=== PATIENT | male | born 1955 | race Caucasian/White ===

== ENCOUNTER 2020-05-22 08:51 | Emergency (ER) | payer OTHER, SELFPAY ==
[2020-05-22] VITALS (14 sets, daily range): BP systolic 141–174; BP diastolic 89–94; PULSE 66–81; RESP 9–19; TEMP 36.3; O2SAT 98–100
--- NOTE | 2020-05-22 09:07 | ECG_ITS ---
Measurements Intervals [place] Rate: 80 P: 46 ND: 143 QRS: 50 QRSD: 118 T: 29 QT: 388 QTc: 450 Interpretive Statements SINUS RHYTHM INCOMPLETE RIGHT BUNDLE BRANCH BLOCK BASELINE WANDER- I, III BORDERLINE ECG Electronically Signed On 05-22-2020 11:44:25 CDT by Quincy Herron D.O.
--- NOTE | 2020-05-22 09:07 | PC.NURSE ---
No order for orthos, so values are as follows: Laying - BP170/90 HR75 Sitting - BP167/89 HR74 Standing (sitting off side of bed, pt couldn't/wouldn't stand) - BP N/A HR76
[2020-05-22 09:15] LABS: Basophils Absolute Auto 0.1 K/mm3 (0.0-0.1); Basophils Percent Auto 0.4 % (0.2-1.2); Eosinophils Absolute Auto 0.2 K/mm3 (0-0.3); Eosinophils Percent Auto 1.8 % (0-4.4); Hemoglobin 16.2 g/dL (14.0-18.0); Immature Granulocyte Absolute 0.05 K/mm3 (0.00-0.031); Immature Granulocyte Percent A 0.4 % (0-0.5); Lymphocytes Absolute Auto 3.15 K/mm3 (0.9-3.2); Lymphocytes Percent Auto 26.7 % (18.3-44.2); Mean Corpuscular HGB Conc 33.8 g/dl (32-36); Mean Corpuscular Hemoglobin 30.4 pg (26-34); Mean Corpuscular Volume 90.1 fl (80-100); Mean Platelet Volume 11.2 fl (7.4-10.4); Monocytes Absolute Auto 1.9 K/mm3 (0.1-0.6); Monocytes Percent Auto 15.9 % (2.6-8.5); Neutrophils Absolute Auto 6.5 K/mm3 (1.3-6.7); Neutrophils Percent Auto 54.8 % (45.5-73.1); Platelet Count Result 187 k/mm3 (150-375); Red Blood Count 5.33 M/mm3 (4.6-6.20); Red Cell Distribution Width 12.7 % (11.5-14.5); White Blood Count 11.8 K/mm3 (4.5-10.0)
[2020-05-22 09:53] LABS: Anion Gap 12 mmol/L (8-16); Blood Urea Nitrogen 18 mg/dL (9-20); Calcium 9.4 mg/dL (8.4-10.2); Carbon Dioxide 23 mmol/L (22-30); Chloride 103 mmol/L (98-107); Estimated CRCL calculation 83 ml/min; Estimated Glomerular Filt Rate > 60; Glucose 116 mg/dL (75-110); Potassium 3.5 mmol/L (3.4-5.0); Sodium 138 mmol/L (137-145)
--- NOTE | 2020-05-22 11:10 | ED.DIZZY ---
HPI - Dizziness General Chief Complaint: Dizziness Stated Complaint: i think I'm having a stroke Time Seen by Provider: 05/22/20 09:08 History of Present Illness HPI Narrative: Patient is a 64-year-old male who presents the ER with dizziness. Patient was pumping gas when he became suddenly dizzy and felt tingly all over. No diaphoresis. No underlying anxiety. Denies chest pain or chest pressure or racing of the heart. Has history of tachybradycardia syndrome with an implanted pacemaker. Has not had symptoms before. Reports she has had upper respiratory congestion for the last few weeks due to allergies. No fevers or chills or sweats. No focal weakness in arm or leg, no slurred speech. Related Data Home Medications Medication Instructions Recorded Confirmed albuterol sulfate 90 mcg/actuation 2 puff INHALATION Q4-6H PRN gm 12/23/19 03/20/20 aerosol inhaler fluticasone propionate 44 2 puff INHALATION BID gm 12/23/19 03/20/20 mcg/actuation HFA aerosol inhaler leflunomide 20 mg tablet 20 mg PO DAILY 12/23/19 03/20/20 Allergies Allergy/AdvReac Type Severity Reaction Status Date / Time No Known Allergies Allergy Verified 05/22/20 09:03 Review of Systems Review of Systems: All systems reviewed & are unremarkable except as noted in HPI and below Constitutional: Constitutional: Denies chills, Denies fever(s) and Denies weakness ENT: Reports dizziness, Reports nasal congestion and Denies sore throat Cardiovascular: Cardiovascular: Denies chest pain and Denies radiating jaw, neck or arm pain Respiratory: Respiratory: Denies cough and Denies dyspnea Neurologic: Reports dizziness, Denies headache(s), Denies focal weakness, Reports numbness and Denies weakness PMFSH Past Medical History Medical History (Updated 05/22/20 @ 11:17 by Panfilo Navarrete MD) Hypercholesterolemia Hypertension Tachycardia-bradycardia syndrome Surgical History Surgical History (Updated 05/22/20 @ 11:12 by Panfilo Navarrete MD) History of pacemaker Social History Social History Smoking status: Never smoker Second hand tobacco smoke exposure: No Alcohol intake: current Drinks per week: 6 Substance use: never Gender identity (if verbalized by the patient): Male Exam Narrative: Exam Narrative: GENERAL: Well-appearing, well-nourished, and in no acute distress. HEAD: Normocephalic, atraumatic. EYES: PERRL and EOMI. ENT: Mucous membranes moist. CHEST: Clear to auscultation. No respiratory distress. HEART: Regular rate and rhythm. Normal peripheral pulses. ABDOMEN: Soft, nontender, nondistended. EXTREMITIES: Normal range of motion. No edema. SKIN: Warm, dry, no rash. NEURO: No focal deficits. No upper or lower extremity drift. Cranial nerves II through XII intact. Clear speech. Alert and oriented x3. Course Course Emergency Course: Patient resting comfortably and symptom-free. May have experienced peripheral vertigo causing sudden onset dizziness and tingling. No focal deficits here. Recommend meclizine for home. Vital Signs Vital signs: Vital Signs Temperature 97.4 F L 05/22/20 08:55 Pulse Rate 81 05/22/20 08:55 Respiratory Rate 16 05/22/20 08:55 Blood Pressure 174/90 H 05/22/20 08:55 Pulse Oximetry 100 05/22/20 08:55 Temperature 97.4 F L 05/22/20 08:55 Pulse Rate 71 05/22/20 09:44 Respiratory Rate 12 05/22/20 09:44 Blood Pressure 154/90 H 05/22/20 09:44 Pulse Oximetry 98 05/22/20 09:44 MDM - Dizziness Lab Data Result diagrams: 05/22/20 09:10 05/22/20 09:27 Labs: Lab Results 05/22/20 05/22/20 Range/Units 09:10 09:27 WBC 11.8 H (4.5-10.0) K/mm3 RBC 5.33 (4.6-6.20) M/mm3 Hgb 16.2 (14.0-18.0) g/dL Hct 48.0 (42.0-52.0) % MCV 90.1 (80-100) fl MCH 30.4 (26-34) pg MCHC 33.8 (32-36) g/dl RDW 12.7 (11.5-14.5) % Plt Count 187 (150-375)
== END 2020-05-22 11:44 | disposition home or self-care (01) ==
PROVIDERS: Emergency Provider Emergency Medicine; PCP Internal Medicine
DX: R42 Dizziness and giddiness (principal); E78.00 Pure hypercholesterolemia, unspecified; I10 Essential (primary) hypertension; Z95.0 Presence of cardiac pacemaker; I49.5 Sick sinus syndrome; I45.10 Unspecified right bundle-branch block
CPT/HCPCS: 36415; 80048; 85025; 93005; 99284

== ENCOUNTER 2020-10-05 15:25 | Outpatient (CLI) | payer OTHER, SELFPAY ==
--- NOTE | ~2020-10-05 | CT_ITS ---
EXAMINATION: CT lumbar spine wo con DATE: 10/05/2020 15:54 INDICATION: Low back pain. TECHNIQUE: Computed tomography (CT) of the lumbar spine was performed without intravenous contrast. A utomated exposure control and iterative reconstruction technique were employed. The dose-length produ ct was 640.79 mGy-cm. COMPARISON: CT lumbar spine 01/20/2019 FINDINGS: There is 6 degrees dextrocurvature of lumbar spine. S1 is a transitional segment. Vertebral body heights are normal. There is mildly decreased disc height at L1-L2 and L2-L3, moderately decrea sed disc height at L3-L4, and severely decreased disc height at L4-L5 and L5-S1. The following disc l evels are specifically discussed: L1-L2: The disc is bulging. There is mild bilateral facet joint osteoarthritis. There is mild right n eural foraminal stenosis. There is mild central canal stenosis. L2-L3: The disc is bulging. There is mild bilateral facet joint osteoarthritis. There is mild bilater al neural foraminal stenosis. There is mild central canal stenosis. L3-L4: The disc is bulging. There is mild right and moderate left facet joint osteoarthritis. There i s mild right and moderate left neural foraminal stenosis. There is mild central canal stenosis. L4-L5: The disc is bulging. There is moderate bilateral facet joint osteoarthritis. There is mild paz ateral neural foraminal stenosis. There is mild central canal stenosis. L5-S1: The disc is bulging. There is moderate bilateral facet joint osteoarthritis. There is moderate bilateral neural foraminal stenosis. There is mild central canal stenosis. IMPRESSION: 1. Severe lumbar spondylosis, stable from 01/20/2019. Reviewed, dictated and finalized at location A. [employer]
== END 2020-10-05 15:26 | disposition home or self-care (01) ==
PROVIDERS: PCP Physician Assistant; Visit Provider Physician Assistant
DX: M47.817 Spondylosis without myelopathy or radiculopathy, lumbosacral region (principal); M48.07 Spinal stenosis, lumbosacral region
CPT/HCPCS: 72131

== ENCOUNTER 2021-05-13 09:20 | Emergency (ER) | payer MEDICARE, OTHER, SELFPAY ==
[2021-05-13] VITALS (16 sets, daily range): BP systolic 143–192; BP diastolic 86–98; PULSE 69–77; RESP 12–18; TEMP 36.8; O2SAT 94–100
--- NOTE | ~2021-05-13 | CT_ITS ---
EXAMINATION: CT brain wo con EXAM DATE: 05/13/2021 10:11 INDICATION: Dizziness, bilateral lower extremity tingling. Near syncope. TECHNIQUE: Spiral CT of the head was performed without contrast. Axial, coronal and sagittal images were reviewed. The dose-length product (DLP) for this examination was 605.33 mGy-cm. The exposure w as tailored according to patient size, and iterative reconstruction (ASIR) was used as additional dos e reduction technique. There is no prior study for comparison. FINDINGS: There is no acute intraparenchymal hemorrhage. No evidence of intraparenchymal brain mass lesion. No evidence of acute infarction. There is no mass effect or midline shift. The ventricles are normal in size. There are no extra-axial collections. There are no acute calvarial fractures. T he orbits are unremarkable. Soft tissue is unremarkable. Moderate ethmoid mucoperiosteal thickening . IMPRESSION: 1. No acute intracranial findings. 2. Moderate ethmoid mucoperiosteal thickening. Reviewed, dictated and finalized at location B.
--- NOTE | 2021-05-13 09:28 | ECG_ITS ---
Measurements Intervals [place] Rate: 76 P: 76 VT: 149 QRS: 43 QRSD: 115 T: 34 QT: 399 QTc: 449 Interpretive Statements SINUS RHYTHM INCOMPLETE RIGHT BUNDLE BRANCH BLOCK BASELINE ARTIFACT- I, III BORDERLINE ECG Electronically Signed On 05-13-2021 10:01:15 CDT by Quincy Herron D.O.
[2021-05-13 09:46] LABS: Basophils Percent Auto 0.3 % (0.2-1.2); Eosinophils Absolute Auto 0.3 K/mm3 (0-0.3); Eosinophils Percent Auto 3.2 % (0-4.4); Hematocrit 45.7 % (42.0-52.0); Hemoglobin 15.6 g/dL (14.0-18.0); Immature Granulocyte Absolute 0.03 K/mm3 (0.00-0.031); Immature Granulocyte Percent A 0.3 % (0-0.5); Lymphocytes Absolute Auto 2.33 K/mm3 (0.9-3.2); Lymphocytes Percent Auto 24.3 % (18.3-44.2); Mean Corpuscular HGB Conc 34.1 g/dl (32-36); Mean Corpuscular Hemoglobin 30.6 pg (26-34); Mean Corpuscular Volume 89.8 fl (80-100); Monocytes Absolute Auto 1.2 K/mm3 (0.1-0.6); Monocytes Percent Auto 12.1 % (2.6-8.5); Neutrophils Absolute Auto 5.7 K/mm3 (1.3-6.7); Neutrophils Percent Auto 59.8 % (45.5-73.1); Platelet Count Result 185 k/mm3 (150-375); Red Blood Count 5.09 M/mm3 (4.6-6.20); Red Cell Distribution Width 12.2 % (11.5-14.5); White Blood Count 9.6 K/mm3 (4.5-10.0)
--- NOTE | 2021-05-13 10:01 | ED.DIZZY ---
HPI - Dizziness General Chief Complaint: Dizziness Stated Complaint: DIZZY Time Seen by Provider: 05/13/21 09:46 Source: patient Mode of arrival: ambulatory Limitations: no limitations History of Present Illness HPI Narrative: Patient is a 65-year-old male complaining of dizziness, started today and when he checked his blood pressure it was high. Patient states that his doctor recently changed his blood pressure medication. Patient currently denies being dizzy, states that he was dizzy while at the bank today felt like he was going to pass out but now resolved. Patient states that he has dizziness whenever his blood pressure is high. Patient denies any headache, speech or visual disturbance, focal weakness or numbness, unsteady gait, chest pain, shortness of breath, abdominal pain, nausea, vomiting, diarrhea, fever or chills. Related Data Home Medications Medication Instructions Recorded Confirmed albuterol sulfate 90 mcg/actuation 2 puff INHALATION Q4-6H PRN gm 12/23/19 10/01/20 aerosol inhaler leflunomide 20 mg tablet 20 mg PO DAILY 12/23/19 10/01/20 Allergies Allergy/AdvReac Type Severity Reaction Status Date / Time No Known Allergies Allergy Verified 09/29/20 14:22 Review of Systems Review of Systems: All systems reviewed & are unremarkable except as noted in HPI and below Constitutional: Constitutional: Denies body ache(s), Denies chills, Denies excessive sweating, Denies fatigue, Denies fever(s), Denies headache(s), Denies lethargy, Denies malaise, Denies weakness and Denies weight loss Eyes: Eyes: Denies blurry vision, Denies change in vision and Denies loss of vision ENT: Denies ear discharge, Denies headache(s), Denies lip swelling, Denies epistaxis, Denies nasal congestion, Denies neck pain, Denies throat swelling and Denies tongue swelling Cardiovascular: Cardiovascular: Denies chest pain, Denies chest pain at rest, Denies chest pain with activity, Denies diaphoresis, Denies rapid heart rate, Denies edema, Denies irregular heart rhythm, Denies lightheadedness, Denies palpitations, Denies dyspnea and Denies dyspnea on exertion Respiratory: Respiratory: Denies chest congestion, Denies cough, Denies hemoptysis, Denies dyspnea and Denies dyspnea on exertion Gastrointestinal: Gastrointestinal: Denies abdominal pain, Denies melena, Denies hematochezia, Denies diarrhea, Denies nausea, Denies vomiting and Denies hematemesis Musculoskeletal: Musculoskeletal: Denies abnormal gait, Denies deformity, Denies joint swelling, Denies limited range of motion, Denies neck pain and Denies numbness Neurologic: Denies Abnormal speech present, Denies abnormal gait, Denies confusion, Denies headache(s), Denies focal weakness, Denies loss of vision, Denies numbness, Denies Other visual disturbances, Denies Sensory deficit (Neuro) and Denies weakness Psychiatric: Psychiatric: Denies confusion, Denies depression, Denies auditory hallucinations, Denies homicidal ideation and Denies suicidal ideation Endocrine: Endocrine: Denies cold intolerance, Denies excessive sweating, Denies fatigue, Denies heat intolerance and Denies palpitations Hematologic/Lymphatic: Hematologic/Lymphatic: Denies easy bleeding and Denies easy bruising Allergic/Immunologic: Allergic/Immunologic: Denies lip swelling, Denies throat swelling and Denies tongue swelling PMFSH Past Medical History Medical History Hypercholesterolemia Hypertension Tachycardia-bradycardia syndrome Surgical History Surgical History History of pacemaker Family History Family History Father Family history of congestive heart failure Social History Social History Smoking status: Never smoker Second hand tobacco smoke exposure: No Alcohol intake: current
[2021-05-13 10:16] LABS: Anion Gap 11 mmol/L (8-16); Blood Urea Nitrogen 16 mg/dL (9-20); Calcium 9.8 mg/dL (8.4-10.2); Carbon Dioxide 26 mmol/L (22-30); Chloride 104 mmol/L (98-107); Estimated CRCL calculation 80 ml/min; Estimated Glomerular Filt Rate > 60; Glucose 118 mg/dL (65-110); Potassium 3.9 mmol/L (3.4-5.0); Sodium 141 mmol/L (137-145)
[2021-05-13] MEDS: LABETALOL HCL INJ 100 MG/20 ML VIAL 20 MG IV PUSH (10:33)
[2021-05-13] MEDS: ACETAMINOPHEN 325 MG TABLET 650 MG PO (12:15)
== END 2021-05-13 12:30 | disposition home or self-care (01) ==
PROVIDERS: Emergency Provider Emergency Medicine; PCP Internal Medicine
DX: I16.0 Hypertensive urgency (principal); E78.00 Pure hypercholesterolemia, unspecified; Z95.0 Presence of cardiac pacemaker; I45.10 Unspecified right bundle-branch block
CPT/HCPCS: 36415; 70450; 80048; 85025; 93005; 96374; 99284; A9270

== ENCOUNTER 2021-11-21 08:28 | Emergency (ER) | payer MEDICARE, OTHER, SELFPAY ==
[2021-11-21 08:43] VITALS: BP 145/92; PULSE 80; RESP 16; TEMP 36.7; O2SAT 100
--- NOTE | 2021-11-21 08:43 | ED.URI ---
HPI - URI/Sore Throat General Chief Complaint: Upper Respiratory Infection Stated Complaint: Sore Throat,Congestion Time Seen by Provider: 11/21/21 08:43 Source: patient and RN notes reviewed Mode of arrival: ambulatory Limitations: no limitations History of Present Illness HPI Narrative: 66-year-old male presented for complaint of sinus pain, congestion and occasional cough for 4 days. Also endorses heartburn as he ran out of Nexium. He has been taking Zyrtec, Flonase, Mucinex with minimal relief, he started 2 tablets of amoxicillin he had leftover last night. He has taken 2 negative home COVID tests. Vaccinated for flu and Covid. He has history of sinusitis. He follows with ENT, last seen 3 months ago. Endorses sick contacts. Denies shortness of breath, wheezing, nausea, vomiting, diarrhea, fever or chills. MD elicited complaint: cough Related Data Home Medications Medication Instructions Recorded Confirmed albuterol sulfate 90 mcg/actuation 2 puff INHALATION Q4-6H PRN gm 12/23/19 11/21/21 aerosol inhaler atorvastatin 20 mg tablet 20 mg PO DAILY 11/04/21 11/21/21 diclofenac sodium 1 ea TOPICAL DAILY 11/21/21 11/21/21 esomeprazole magnesium 20 mg PO DAILY 11/21/21 11/21/21 prednisolone acetate 1 drp RIGHT EYE TID 11/21/21 11/21/21 Allergies Allergy/AdvReac Type Severity Reaction Status Date / Time No Known Allergies Allergy Verified 11/21/21 08:59 Review of Systems Review of Systems: CONSTITUTIONAL: denies malaise, chills, sweats, fever EYES: Denies visual changes, redness, or discharge ENT: Reports rhinorrhea, congestion, sinus pain, sore throat CARDIOVASCULAR: Denies chest pain, palpitations, edema RESPIRATORY: Reports cough, post nasal drainage. Denies dyspnea GASTROINTESTINAL: Denies abdominal pain, nausea, vomiting, diarrhea SKIN: Denies rash or itching MUSCULOSKELETAL: denies myalgia NEUROLOGIC: Denies headache PMFSH Past Medical History Medical History Hx of gastroesophageal reflux (GERD) Hypercholesterolemia Hypertension Tachycardia-bradycardia syndrome Surgical History Surgical History History of pacemaker Family History Family History Father Family history of congestive heart failure Mother Heart disease Social History Social History Smoking status: Never smoker Second hand tobacco smoke exposure: No Alcohol intake: current Drinks per week: 6 Alcohol use details: wine Substance use: never Additional occupation/education comments: Contractor Gender identity (if verbalized by the patient): Male Exam Narrative: GENERAL: Ill-appearing, nontoxic no acute distress. HEAD: Normocephalic EYES: PERRLA, conjunctivae clear ENT: Mucous membranes moist. TM pearly pan with dull light reflex bilaterally; no tragal tenderness. Oropharynx erythematous without lesions or exudate, no drooling, no hoarseness, no trismus, uvula midline. No tripod positioning, muffled voice, soft palate or pharyngeal wall bulging NECK: Supple. No lymphadenopathy CHEST: Clear to auscultation, breath sounds equal. No wheezing, rhonchi, rales, or stridor. No respiratory distress, speaks in full sentences. HEART: Regular rate and rhythm. No murmur heard. SKIN: Warm, dry, no rash. NEURO: Alert and oriented x3. PSYCH: Normal mood and affect Course Course Emergency Course: Patient is aware of diagnosis, understands and agrees to treatment plan. Anticipatory guidance given. Patient agrees to follow-up as directed and is aware of reasons to seek care at the emergency department. Portions of this record may have been created with voice recognition software Level of Care: Express Care Visit Vital Signs Vital signs: Vital Signs Temperature 98.1 F 11/21/21
== END 2021-11-21 09:25 | disposition home or self-care (01) ==
PROVIDERS: Emergency Provider Nurse Practitioner Family; PCP Internal Medicine
DX: J06.9 Acute upper respiratory infection, unspecified (principal); Z20.822 Contact with and (suspected) exposure to COVID-19; K21.9 Gastro-esophageal reflux disease without esophagitis; E78.00 Pure hypercholesterolemia, unspecified; I10 Essential (primary) hypertension; Z95.0 Presence of cardiac pacemaker
CPT/HCPCS: 87426; 87804; 99213; C9803; G0463

== ENCOUNTER 2022-05-24 17:33 | Emergency (ER) | payer MEDICARE, OTHER, SELFPAY ==
[2022-05-24 17:43] VITALS: BP 148/83; PULSE 90; RESP 20; TEMP 36.9; O2SAT 99
--- NOTE | 2022-05-24 17:52 | ED.GENADULT ---
HPI - General Adult General Chief complaint: Upper Respiratory Infection Stated complaint: Headache,Sore Throat,Sinus History of Present Illness HPI narrative: 66 y/o male. PMHx HTN, Dyslipidemia, Pacemaker, Former Smoker. Presents to [facility] today with acute complaints of RAI, Body aches, increased nasal congestion, and cough for the past 24 hours. Client reports to have taken a home Covid test, and 'it was positive', but he wanted tested at a healthcare facility to be sure. No fevers. No focal weakness. Denies chest pain, palpitations, dyspnea, edema. No GI upset, N/V/D. No additional acute c/o upon PE. Related Data Home Medications Medication Instructions Recorded Confirmed albuterol sulfate 90 mcg/actuation 2 puff inhalation Q4-6H PRN 12/23/19 05/24/22 aerosol inhaler (ProAir HFA) difficulty breathing atorvastatin 20 mg tablet 20 mg PO DAILY 11/04/21 05/24/22 esomeprazole magnesium 20 mg 20 mg PO DAILY 11/21/21 05/24/22 capsule,delayed release fluticasone 250 mcg-salmeterol 50 2 inh inhalation DAILY 05/24/22 05/24/22 mcg/dose blistr powdr for inhalation (Advair Diskus) Allergies Allergy/AdvReac Type Severity Reaction Status Date / Time No Known Allergies Allergy Verified 05/24/22 17:36 Review of Systems Review of Systems: CONSTITUTIONAL: Denies fever, chills. Positive Body aches. EYES: Denies visual changes, redness, discharge. ENT: Positive rhinorrhea, congestion. No sore throat, otalgia. CARDIOVASCULAR: Denies chest pain, palpitations, edema. RESPIRATORY: Denies dyspnea, wheezing, cough GASTROINTESTINAL: Denies abdominal pain, nausea, vomiting, diarrhea. GENITOURINARY: Denies dysuria, hematuria, abnormal discharge SKIN: Denies rash or itching. MUSCULOSKELETAL: Denies acute back pain, joint pain, or myalgia. NEUROLOGIC: Denies numbness, or focal weakness. PSYCHIATRIC: Denies anxiety or depression. [facility] Past Medical History Medical History Hx of gastroesophageal reflux (GERD) Hypercholesterolemia Hypertension Tachycardia-bradycardia syndrome Surgical History Surgical History History of pacemaker Family History Family History Father Family history of congestive heart failure Mother Heart disease Social History Social History Second hand tobacco smoke exposure: No Alcohol intake: current Drinks per week: 6 Alcohol use details: wine Substance use: never Additional occupation/education comments: Contractor Gender identity (if verbalized by the patient): Male Exam Narrative: GENERAL: This is a well-nourished, well-developed adult, in no apparent distress. HEAD: normocephalic, atraumatic. EYES: PERRL. Sclera clear/white. EARS: External ears normal, auditory canals clear and without drainage, TMs normal. NOSE: External nose normal. Positive Rhinorrhea, no obstruction, nares patent. THROAT: Mucous membranes moist, posterior pharynx erythematous. No exudates. NECK: Neck supple, non-tender without lymphadenopathy, masses or thyromegaly. CARDIOVASCULAR: Regular rate and rhythm without murmurs, gallops, or rubs. No edema. RESPIRATORY: Clear to auscultation. Breath sounds equal bilaterally. No wheezes, rales, or rhonchi. GASTROINTESTINAL: Abdomen soft, non-tender, nondistended. SKIN: warm, intact with no suspicious lesions or rash, good texture and turgor. NEURO: Alert, active, and age appropriate. No focal neurologic deficits. Course Course Level of Care: Express Care Visit Vital Signs Vital signs: Vital Signs Temperature 36.9 C 05/24/22 17:43 Pulse Rate 90 05/24/22 17:43 Respiratory Rate 20 05/24/22 17:43 Blood Pressure 148/83 H 05/24/22 17:43 Pulse Oximetry 99 05/24/22 17:43 Oxygen D
== END 2022-05-24 17:54 | disposition home or self-care (01) ==
PROVIDERS: Emergency Provider Nurse Practitioner Adult Health; PCP Internal Medicine
DX: U07.1 COVID-19 (principal); K21.9 Gastro-esophageal reflux disease without esophagitis; E78.00 Pure hypercholesterolemia, unspecified; I10 Essential (primary) hypertension; Z95.0 Presence of cardiac pacemaker; Z87.891 Personal history of nicotine dependence
CPT/HCPCS: 87426; 99213; C9803; G0463

== ENCOUNTER 2022-05-30 09:43 | Emergency (ER) | payer MEDICARE, OTHER, SELFPAY ==
--- NOTE | 2022-05-30 09:48 | ED.URI ---
HPI - URI/Sore Throat General Chief Complaint: Upper Respiratory Infection Stated Complaint: covid, wants to retest Time Seen by Provider: 05/30/22 09:48 Source: patient and RN notes reviewed History of Present Illness HPI Narrative: Patient is a 66-year-old male who presents the urgent care with complaints of cough post COVID. Patient states that he tested positive for COVID last Sunday and wants to know why he is continuingly testing positive. Patient was on steroids due to his wheezing. He has a history of asthma and takes daily antihistamines with mild relief. Patient states he is also been taking Mucinex. Denies of any wheezing, shortness of breath or chest pain. Patient is requesting to be retested for COVID. No other acute complaints. No acute distress noted. Patient aware of the plan of care. Some parts of this dictation were generated by voice recognition software and may contain typographical and/or grammatical inaccuracies. Related Data Home Medications Medication Instructions Recorded Confirmed albuterol sulfate 90 mcg/actuation 2 puff inhalation Q4-6H PRN 12/23/19 05/24/22 aerosol inhaler (ProAir HFA) difficulty breathing atorvastatin 20 mg tablet 20 mg PO DAILY 11/04/21 05/24/22 esomeprazole magnesium 20 mg 20 mg PO DAILY 11/21/21 05/24/22 capsule,delayed release fluticasone 250 mcg-salmeterol 50 2 inh inhalation DAILY 05/24/22 05/24/22 mcg/dose blistr powdr for inhalation (Advair Diskus) Allergies Allergy/AdvReac Type Severity Reaction Status Date / Time No Known Allergies Allergy Verified 05/24/22 17:36 Review of Systems Review of Systems: CONSTITUTIONAL: Denies fever, chills, or sweats. EYES: Denies visual changes, redness, or discharge. ENT: Denies rhinorrhea, congestion, sore throat, or otalgia. CARDIOVASCULAR: Denies chest pain, palpitations, or edema. RESPIRATORY: Reports of cough without dyspnea GASTROINTESTINAL: Denies abdominal pain, nausea, vomiting, or diarrhea. GENITOURINARY: Denies dysuria or hematuria. SKIN: Denies rash or itching. MUSCULOSKELETAL: Denies back pain, joint pain, or myalgia. NEUROLOGIC: Denies headache, numbness, or weakness. All other systems reviewed are negative, except as documented in HPI. [facility] Past Medical History Medical History Hx of gastroesophageal reflux (GERD) Hypercholesterolemia Hypertension Tachycardia-bradycardia syndrome Surgical History Surgical History History of pacemaker Family History Family History Father Family history of congestive heart failure Mother Heart disease Social History Social History Second hand tobacco smoke exposure: No Alcohol intake: current Drinks per week: 6 Alcohol use details: wine Substance use: never Additional occupation/education comments: Contractor Gender identity (if verbalized by the patient): Male Comments At the time of my signature, I reviewed and agree with the nursing past medical, surgical, social, and family history. There is no relevant family history pertinent to the patient complaint. Exam Narrative: GENERAL: This is a well-nourished, well-developed patient, in no apparent distress. HEAD: normocephalic, atraumatic. EYES: PERRL. Sclera clear/white. Vision is grossly intact. EARS: External ears normal, auditory canals clear and without drainage, TMs normal without perforation. Hearing grossly intact. NOSE: External nose normal with no obvious nasal discharge, nares without redness, no rhinorrhea. THROAT: Mucous membranes moist, posterior pharynx clear. Moderate postnasal drainage NECK: Neck supple CARDIOVASCULAR: Regular rate and rhythm without murmurs, gallops, or rubs. RESPIRATORY: Persistent wet cough. Clear to auscultation. Nellie
[2022-05-30 09:53] VITALS: BP 163/105; PULSE 74; RESP 18; O2SAT 100
[2022-05-30 10:03] VITALS: TEMP 36.7
== END 2022-05-30 10:07 | disposition home or self-care (01) ==
PROVIDERS: Emergency Provider Nurse Practitioner Family
DX: R05.3 Chronic cough (principal); U09.9 Post COVID-19 condition, unspecified; K21.9 Gastro-esophageal reflux disease without esophagitis; E78.00 Pure hypercholesterolemia, unspecified; I10 Essential (primary) hypertension; Z95.0 Presence of cardiac pacemaker
CPT/HCPCS: 99211; G0463

== ENCOUNTER 2022-08-07 06:59 | Emergency (ER) | payer MEDICARE, OTHER, SELFPAY ==
--- NOTE | ~2022-08-07 | XR_ITS ---
EXAMINATION: XR chest 2V DATE: 08/07/2022 07:29 INDICATION: Upper respiratory infection. Cough. TECHNIQUE: Frontal and lateral views of the chest were obtained. COMPARISON: Chest 2 views 10/27/2018 FINDINGS: There is no pneumonia, pleural effusion, or pneumothorax. The heart size is normal. There i s a left chest wall pacer with leads in the right atrium and right ventricle. IMPRESSION: 1. No acute cardiopulmonary disease. Reviewed, dictated and finalized at location A. YER OPERATOR
[2022-08-07 07:11] VITALS: BP 145/90; PULSE 88; RESP 18; TEMP 37.1; O2SAT 100
[2022-08-07 08:04] LABS: Influenza A QL RT-PCR Negative (Negative); Influenza B QL RT-PCR Negative (Negative); SARS-CoV-2 RNA PCR Negative
[2022-08-07 11:23] VITALS: PULSE 77; RESP 18; TEMP 36.9; O2SAT 97
--- NOTE | 2022-08-07 11:50 | ECG_ITS ---
Measurements Intervals [place] Rate: 73 P: 83 MA: 142 QRS: 41 QRSD: 117 T: 45 QT: 378 QTc: 417 Interpretive Statements SINUS RHYTHM INCOMPLETE RIGHT BUNDLE BRANCH BLOCK BORDERLINE ECG COMPARED TO ECG 05/13/2021 09:27:28 NO SIGNIFICANT CHANGES Electronically Signed On 08-07-2022 12:05:43 INTERVENTIONAL NURSE by Quincy Herron D.O.
--- NOTE | 2022-08-07 11:51 | ED.URI ---
HPI - URI/Sore Throat General Chief Complaint: Upper Respiratory Infection Stated Complaint: Productive cough, headache Time Seen by Provider: 08/07/22 11:25 Source: patient Mode of arrival: ambulatory Limitations: no limitations History of Present Illness HPI Narrative: This is a 67-year-old male that presents to the emergency department for productive cough. Reports he was treated last week for bronchitis. Reports over the last couple of days he has had a cough productive of sputum. Reports diffuse myalgias. Reports history of asthma and that he was having trouble with wheezing last night. Denies fever or current shortness of breath. Related Data Home Medications Medication Instructions Recorded Confirmed atorvastatin 20 mg tablet 20 mg PO DAILY 11/04/21 06/03/22 esomeprazole magnesium 20 mg 20 mg PO DAILY 11/21/21 06/03/22 capsule,delayed release fluticasone 250 mcg-salmeterol 50 2 inh inhalation DAILY 05/24/22 06/03/22 mcg/dose blistr powdr for inhalation (Advair Diskus) Allergies Allergy/AdvReac Type Severity Reaction Status Date / Time No Known Allergies Allergy Verified 08/07/22 07:16 Review of Systems Review of Systems: CONSTITUTIONAL: Denies fever ENT: Reports rhinorrhea, congestion CARDIOVASCULAR: Reports chest pain. Denies edema. RESPIRATORY: Reports cough. Denies dyspnea. All systems reviewed & are unremarkable except as noted in HPI and below PMFSH Past Medical History Medical History Hx of gastroesophageal reflux (GERD) Hypercholesterolemia Hypertension Tachycardia-bradycardia syndrome Surgical History Surgical History History of pacemaker Family History Family History Father Family history of congestive heart failure Mother Heart disease Social History Social History Smoking status: Never smoker Second hand tobacco smoke exposure: No Alcohol intake: current Drinks per week: 6 Alcohol use details: wine Substance use: never Additional occupation/education comments: Contractor Gender identity (if verbalized by the patient): Male Exam Narrative: GENERAL: Well-appearing, well-nourished, and in no acute distress. HEAD: Normocephalic, atraumatic. EYES: EOMI. ENT: Nares clear, no rhinorrhea or epistaxis. Mucous membranes moist. Oropharynx without tonsillar hypertrophy exudate or other lesions. Bilateral TMs pearly pan non-bulging NECK: Supple. No adenopathy or masses. CHEST: Clear to auscultation. No respiratory distress. No wheezes rales or rhonchi HEART: Regular rate and rhythm. No murmur heard. Normal peripheral pulses. EXTREMITIES: Normal range of motion. No edema. SKIN: Warm, dry, no rash. NEURO: No focal deficits. Alert and oriented x3. PSYCH: Normal mood and affect Course Vital Signs Vital signs: Vital Signs Temperature 98.7 F 08/07/22 07:11 Pulse Rate 88 08/07/22 07:11 Respiratory Rate 18 08/07/22 07:11 Blood Pressure 145/90 H 08/07/22 07:11 Pulse Oximetry 100 08/07/22 07:11 Oxygen Delivery Room Air 08/07/22 07:11 Temperature 98.4 F 08/07/22 11:23 Pulse Rate 77 08/07/22 11:23 Respiratory Rate 18 08/07/22 11:23 Blood Pressure 145/90 H 08/07/22 07:11 Pulse Oximetry 97 08/07/22 11:23 Oxygen Delivery Room Air 08/07/22 11:20 MDM - URI/Sore Throat MDM Narrative Medical decision making narrative: Patient presents to the emergency department for cold symptoms ongoing over the last week. Reports a persistent productive cough. He is afebrile and nontoxic-appearing. Oxygen saturation is normal on room air. Lungs are clear on exam. CBC is without leukocytosis. Influenza and COVID screens are negative. Chest x-ray without acute cardiopulmonary abnormality. Patient wa
[2022-08-07] MEDS: ACETAMINOPHEN 500 MG TABLET 1000 MG PO (12:11)
[2022-08-07 12:17] LABS: Basophils Percent Auto 0.3 % (0.2-1.2); Eosinophils Percent Auto 0.3 % (0-4.4); Hematocrit 42.6 % (42.0-52.0); Hemoglobin 14.3 g/dL (14.0-18.0); Immature Granulocyte Absolute 0.02 K/mm3 (0.00-0.031); Immature Granulocyte Percent A 0.2 % (0-0.5); Lymphocytes Absolute Auto 0.81 K/mm3 (0.9-3.2); Mean Corpuscular HGB Conc 33.6 g/dl (32-36); Mean Corpuscular Hemoglobin 31.2 pg (26-34); Mean Platelet Volume 10.8 fl (7.4-10.4); Monocytes Absolute Auto 1.4 K/mm3 (0.1-0.6); Monocytes Percent Auto 14.9 % (2.6-8.5); Neutrophils Absolute Auto 6.8 K/mm3 (1.3-6.7); Neutrophils Percent Auto 75.3 % (45.5-73.1); Platelet Count Result 124 k/mm3 (150-375); Red Blood Count 4.58 M/mm3 (4.6-6.20); Red Cell Distribution Width 12.1 % (11.5-14.5)
[2022-08-07 12:34] LABS: Anion Gap 9 mmol/L (8-16); Blood Urea Nitrogen 12 mg/dL (9-20); Calcium 8.6 mg/dL (8.4-10.2); Carbon Dioxide 28 mmol/L (22-30); Chloride 99 mmol/L (98-107); Creatine Kinase 114 U/L (55-170); Estimated CRCL calculation 78 ml/min; Estimated Glomerular Filt Rate > 60; Glucose 108 mg/dL (65-110); Sodium 136 mmol/L (137-145); Troponin I < 0.012 ng/mL (0.000-0.034)
== END 2022-08-07 13:09 | disposition home or self-care (01) ==
PROVIDERS: Family Medicine; Emergency Provider Physician Assistant; PCP Physician Assistant
DX: J06.9 Acute upper respiratory infection, unspecified (principal); Z20.822 Contact with and (suspected) exposure to COVID-19; E78.00 Pure hypercholesterolemia, unspecified; I10 Essential (primary) hypertension; I49.5 Sick sinus syndrome; K21.9 Gastro-esophageal reflux disease without esophagitis; Z95.0 Presence of cardiac pacemaker; I45.10 Unspecified right bundle-branch block
CPT/HCPCS: 36415; 71046; 80048; 82550; 84484; 85025; 85055; 87636; 93005; 99284; A9270

== ENCOUNTER 2023-04-17 11:24 | Emergency (ER) | payer MEDICARE, OTHER, SELFPAY ==
[2023-04-17 11:26] VITALS: BP 169/87; PULSE 79; RESP 18; TEMP 36.7; O2SAT 100
--- NOTE | 2023-04-17 12:02 | PC.NURSE ---
patient alert and oriented x4. ambulatory with steady gait. patient wanting to leave at this time. patient will come back to ER if symptoms return.
== END 2023-04-17 12:03 | disposition left against medical advice (07) ==
PROVIDERS: PCP Physician Assistant
DX: R10.12 Left upper quadrant pain (principal)
CPT/HCPCS: 99199; A4565

== ENCOUNTER 2023-06-01 11:22 | Emergency (ER) | payer MEDICARE, OTHER, SELFPAY ==
[2023-06-01] VITALS (22 sets, daily range): BP systolic 124–148; BP diastolic 77–92; PULSE 75–87; RESP 14–21; TEMP 36.8; O2SAT 97–100
--- NOTE | ~2023-06-01 | CT_ITS ---
EXAMINATION: CT abdomen pelvis w con DATE: 06/01/2023 14:43 INDICATION: Abdominal pain TECHNIQUE: Computed tomography (CT) of the abdomen and pelvis was performed with 100 mL Omnipaque-350 intravenous contrast. Automated exposure control and iterative reconstruction technique were employe d. The dose-length product was 602.90 mGy-cm. COMPARISON: 10/27/2018 FINDINGS: Discoid atelectasis at the lingula and left lower lobe. Heart size is normal. No pericardial or pleur al effusion. Calcified mediastinal lymph node and hepatic calcific lesions consistent with old granul omatous disease. Cholecystectomy clips at the gallbladder fossa. Spleen, pancreas, bilateral adrenal glands and right kidney are normal. 4.0 cm left renal cyst. Fluid throughout the colon consistent wit h diarrhea. There is also fluid throughout much of the small bowel without kylah dilation or discrete transition point to suggest obstruction is most likely related to gastroenteritis or ileus. Bladder is normal. Small fat-containing direct right inguinal hernia. No pathologically enlarged abdominal or pelvic lymphadenopathy. Severe lumbar spondylosis. IMPRESSION: 1. Fluid consistent with diarrhea throughout the colon and small bowel without kylah dilation or ajcques sition point to suggest obstruction most likely gastroenteritis with differential including ileus. Reviewed, dictated and finalized at location A. IMPRESSION: 1. Fluid consistent with diarrhea throughout the colon and small bowel without kylah dilation or transition point to suggest obstruction most likely gastroent eritis with differential including ileus.
[2023-06-01 12:02] LABS: Basophils Percent Auto 0.1 % (0.2-1.2); Eosinophils Absolute Auto 0.1 K/mm3 (0-0.3); Eosinophils Percent Auto 0.5 % (0-4.4); Hematocrit 45.2 % (42.0-52.0); Hemoglobin 15.7 g/dL (14.0-18.0); Immature Granulocyte Absolute 0.03 K/mm3 (0.00-0.031); Immature Granulocyte Percent A 0.3 % (0-0.5); Lymphocytes Absolute Auto 0.62 K/mm3 (0.9-3.2); Lymphocytes Percent Auto 6.6 % (18.3-44.2); Mean Corpuscular HGB Conc 34.7 g/dl (32-36); Mean Corpuscular Hemoglobin 31.4 pg (26-34); Mean Corpuscular Volume 90.4 fl (80-100); Mean Platelet Volume 10.8 fl (7.4-10.4); Monocytes Absolute Auto 1.1 K/mm3 (0.1-0.6); Monocytes Percent Auto 11.8 % (2.6-8.5); Neutrophils Absolute Auto 7.6 K/mm3 (1.3-6.7); Neutrophils Percent Auto 80.7 % (45.5-73.1); Platelet Count Result 167 k/mm3 (150-375); Red Cell Distribution Width 11.9 % (11.5-14.5); White Blood Count 9.4 K/mm3 (4.5-10.0)
[2023-06-01 12:08] LABS: Appearance Urine Clear (Clear); Bacteria Urine None Seen /hpf; Bilirubin Urine 1+ (Negative); Blood Urine Negative (Negative); Color Urine Dark Yellow (Yellow); Glucose Urine UA Negative (Negative); Ketones Urine Negative (Negative); Leukocyte Esterase Ur Negative LEU/UL (Negative); Nitrate Urine Negative (Negative); Non Pathogenic Casts 0-2; Protein Urine Trace mg/dL (Negative); Specific Grav Ur 1.024 (1.001-1.035); Squamous Epithelial Cell Urine None seen /hpf (Few); Urobilinogen Urine 0.2 mg/dL (<2.0); WBC Urine 0-5 /hpf
[2023-06-01 12:10] LABS: Add Urine Microscopic? YES
[2023-06-01 12:13] LABS: Alanine Aminotransferase 55 U/L (6-50); Albumin Level 4.8 g/dL (3.5-5.1); Alkaline Phosphatase 63 U/L (38-126); Anion Gap 12 mmol/L (8-16); Aspartate Amino Transferase 37 U/L (17-59); Bilirubin,Total 1.3 mg/dL (0.2-1.3); Blood Urea Nitrogen 19 mg/dL (9-20); Carbon Dioxide 21 mmol/L (22-30); Chloride 99 mmol/L (98-107); Estimated CRCL calculation 78 ml/min; Estimated Glomerular Filt Rate > 60; Glucose 117 mg/dL (65-110); Lipase 80 U/L (23-300); Potassium 3.4 mmol/L (3.4-5.0); Sodium 132 mmol/L (137-145)
--- NOTE | 2023-06-01 14:27 | ED.ABDPAIN ---
HPI - Abdominal Pain General Chief Complaint: Abdominal Pain Stated Complaint: sent from with diarrhea and abd pain Time Seen by Provider: 06/01/23 13:08 History of Present Illness HPI narrative: 67-year-old male presented to the emergency department for evaluation of abdominal pain and diarrhea. Patient reports that the symptoms started yesterday. He has had very persistent diarrhea. Patient suspects that he may have got up from a restaurant. Related Data Home Medications Medication Instructions Recorded Confirmed atorvastatin 20 mg tablet 20 mg PO DAILY 11/04/21 06/03/22 fluticasone 250 mcg-salmeterol 50 2 inh inhalation DAILY 05/24/22 06/03/22 mcg/dose blistr powdr for inhalation (Advair Diskus) Allergies Allergy/AdvReac Type Severity Reaction Status Date / Time No Known Allergies Allergy Verified 06/01/23 11:22 Review of Systems Review of Systems: All systems reviewed & are unremarkable except as noted in HPI and below PMFSH Past Medical History Medical History Hx of gastroesophageal reflux (GERD) Hypercholesterolemia Hypertension Tachycardia-bradycardia syndrome Surgical History Surgical History History of pacemaker Family History Family History Father Family history of congestive heart failure Mother Heart disease Social History Social History Smoking status: Never smoker Second hand tobacco smoke exposure: No Alcohol intake: current Drinks per week: 6 Alcohol use details: wine Substance use: never Living arrangements: with family Occupation/Education: occupation Additional occupation/education comments: Contractor Gender identity (if verbalized by the patient): Male Exam Narrative: APPEARANCE: Well appearing, no pain, no distress, well-nourished. HEAD: normocephalic, atraumatic. EYES: PERRLA/EOMI, conjunctivae clear. NOSE: Normal no drainage NECK: Supple. No adenopathy, no masses. RESPIRATORY: Airway patent, respirations nonlabored. Clear to auscultation bilaterally, no rales, rhonchi, wheezing. CARDIOVASCULAR: Regular rate and rhythm without murmurs rubs or gallops. ABDOMINAL: Soft, normal bowel sounds, diffusely tender abdomen MUSCULOSKELETAL: Moves all extremities. Strength/ROM intact, No edema, No calf tenderness. NEURO: Alert. Cranial nerves II through XII intact. Grossly intact SKIN: Warm, dry. Normal Color Course Course Emergency Course: 67-year-old male present to the emergency department evaluation of abdominal cramping associated diarrhea. Patient is afebrile with no leukocytosis and a stable hemoglobin. No significant abnormalities on the patient's CMP. No evidence of urinary tract infection. CT scan did show evidence of gastroenteritis with no evidence of abscess perforation cholecystitis or appendicitis. Patient did feel improved after rehydration. Patient was updated results of her work-up. Patient will be provided Bentyl for spasm control and was advised to follow a clear liquid diet at home. All question concerns were addressed and patient was educated on reasons to return to the emergency department. Vital Signs Vital signs: Vital Signs Temperature 98.2 F 06/01/23 11:33 Pulse Rate 87 06/01/23 11:33 Respiratory Rate 14 06/01/23 11:33 Blood Pressure 130/92 H 06/01/23 11:33 Pulse Oximetry 98 06/01/23 11:33 Oxygen Delivery Room Air 06/01/23 11:33 Temperature 98.2 F 06/01/23 11:33 Pulse Rate 76 06/01/23 16:36 Respiratory Rate 15 06/01/23 16:36 Blood Pressure 124/77 06/01/23 16:36 Pulse Oximetry 100 06/01/23 16:36 Oxygen Delivery Room Air 06/01/23 11:33 MDM - Abdominal Pain Differential Diagnosis Differential diagnosis: Likely abdominal pain, acu
[2023-06-01] MEDS: ONDANSETRON INJ 4 MG/2 ML VIAL IV PUSH (14:28)
[2023-06-01] MEDS: SODIUM CHLORIDE 0.9% IV 1,000 ML 999 ML IV CONT ×2 (14:28→15:29)
[2023-06-01] MEDS: HYDROmorphone HCL INJ (*CRX) 1 MG/ML SYR 0.5 MG IV PUSH (14:29)
[2023-06-01 15:43] LABS: Toxigenic C. Diff NEGATIVE (NEGATIVE)
== END 2023-06-01 17:00 | disposition home or self-care (01) ==
PROVIDERS: Emergency Provider Emergency Medicine; PCP Physician Assistant
DX: R19.7 Diarrhea, unspecified (principal); R10.9 Unspecified abdominal pain; K21.9 Gastro-esophageal reflux disease without esophagitis; E78.00 Pure hypercholesterolemia, unspecified; I10 Essential (primary) hypertension; Z95.0 Presence of cardiac pacemaker
CPT/HCPCS: 36415; 74177; 80053; 81001; 83690; 85025; 87045; 87269; 87272; 87427; 87449; 87493; 89055; 96361; 96374; 96375; 99284; J1170; J2405; J7030; Q9967

== ENCOUNTER 2023-08-09 06:52 | Outpatient (CLI) | payer MEDICARE, OTHER, SELFPAY ==
[2023-08-09 08:20] LABS: Hemoglobin A1C 5.3 % (<5.7)
[2023-08-09 08:21] LABS: Alanine Aminotransferase 55 U/L (6-50); Albumin Level 4.6 g/dL (3.5-5.1); Alkaline Phosphatase 62 U/L (38-126); Anion Gap 12 mmol/L (8-16); Aspartate Amino Transferase 38 U/L (17-59); Bilirubin,Total 1.1 mg/dL (0.2-1.3); Blood Urea Nitrogen 19 mg/dL (9-20); Calcium 9.3 mg/dL (8.4-10.2); Carbon Dioxide 23 mmol/L (22-30); Chloride 105 mmol/L (98-107); Cholesterol 153 mg/dL (0-200); Estimated Glomerular Filt Rate > 60; Glucose 114 mg/dL (65-110); HDL Direct 35 mg/dL; Potassium 3.9 mmol/L (3.4-5.0); Sodium 140 mmol/L (137-145); Triglycerides 103 mg/dL (<150)
[2023-08-09 08:35] LABS: LDL Cholesterol Direct 85 mg/dL
[2023-08-09 08:49] LABS: Prostate Specific Antigen 2.3 ng/mL (< OR = 4.0)
[2023-08-09 09:24] LABS: Folic Acid 16.3 ng/mL (2.76->20)
== END 2023-08-09 06:53 | disposition home or self-care (01) ==
LOC: ANHLAB 06:54
PROVIDERS: PCP Physician Assistant; Visit Provider Physician Assistant
DX: R73.9 Hyperglycemia, unspecified (principal); R53.83 Other fatigue; E78.00 Pure hypercholesterolemia, unspecified; Z12.5 Encounter for screening for malignant neoplasm of prostate
CPT/HCPCS: 36415; 80053; 80061; 82607; 82746; 83036; 84153; 84443; G0103

== ENCOUNTER 2025-04-29 14:39 | Emergency (ER) | payer MEDICARE, OTHER, SELFPAY ==
--- OUTSIDE RECORDS SUMMARY | 2024-05-06 12:30 | XMS_ITS ---
Author Organization [facility] [place] ([address]) Address [address] [place] [address] Care Team Providers Care Gas Appliance Servicer Helper Name Role Phone Uriah Melo Unavailable [phone] Latoya PORTILLO, Loco Tadeo UnavailMaynor Massey [phone] Encounters Encounter Location Date Provider Diagnosis [facility] [address] [place] [address] 05/06/2024 Maynor Winn Plan Of Treatment No Information Progress Notes * Ford WILSON GDOB:11/1954 (69 yo M)Acc No.[id number]:05/06/2024 SCIT-Aeroallergen Patient: Ford GIL Provider: Jill Winn MD :1955 A ge:68 Y S ex:Male Date:05/06/2024 Address:[facility] [address] [facility] Subjective: * Chief Complaints: * * Medical History: Objective: * Vitals: Assessment: Plan: * Treatment: * Billing Information: * Visit Code: * Procedure Codes: * Electronic signature of Juan Francisco Winn MD, FAAAAI on 04/29/2025 at 03:12 PM CDT Sign off status: Pending * Provider: Jill Winn MD Date: 05/06/2024 Generated for Radha saldana/Anamika/Hildasmitting on: 0 04/29/2025 03:12 PM CDT
--- OUTSIDE RECORDS SUMMARY | 2024-06-02 09:50 | XMS_ITS ---
Author Organization [facility] [place] ([address]) Address [address] [place] [address] Care Team Providers Care Accessibility Lift Technician Name Role Phone Uriah Melo Unavailable [phone] Loco Klein MD Unavailable UnavailMaynor Massey [phone] REASON FOR VISIT SCIT - Traditional Schedule Allergy Immunotherapy (Week ) Encounters Encounter Location Date Provider Diagnosis [facility] [address] [place] [address] 06/02/2024 Maynor Winn Allergic rhinitis du e to pollen J30.1 ; Other allergic rhinitis J30.89 ; Allergic rhinitis due to animal (cat) (dog) hair and dander J30.81 and Other chronic allergic conjunctivitis H10.45 Assessments Encounter Date Diagnosis (ICD Code) Assessment Notes Treatment Notes Treatment Clinical Notes Section Notes 06/02/2024 Allergic rhinitis due to pollen (ICD-10 - J30.1) 06/02/2024 Other allergic rhinitis (ICD-10 - J30.89) 06/02/2024 Allergic rhinitis due to animal (cat) (dog) hair and dander (ICD-10 - J30.81) 06/02/2024 Other chronic allergic conjunctivitis (ICD-10 - H10.45) Plan Of Treatment Next Appt Details Follow Up: As scheduled, Selina son: Progress Notes * Ford WILSON GDOB:11/1954 (69 yo M)Acc No.[id number]:06/02/2024 SCIT-Aeroallergen Patient: Ford GLI Provider: Jill Winn MD :1955 A ge:68 Y S ex:Male Date:06/02/2024 Address:[facility] [address] Subjective: * Chief Complaints: * 1 . SCIT - Traditional Schedule Allergy Immunotherapy (Week ). * HPI: * Introduction: The patient is here for scheduled immunotherapy. Please see the attached specialty form regarding the specifics of the administration of these vaccines. As per our protocol, they must undergo a screening health questionnaire (medication changes, reaction(s) to last immunotherapy dose(s), current health status, ACT (if appropriate), self-injectable epinephrine on patient(?) and peak flow (if appropriate)). Also, the patient must wait in our office for 30 minutes after receiving the vaccine(s). Furthermore, every patient must have an epinephrine pen (self-injectable) with them at the time of administration--and carry if for the following 1.5 hours after they leave our office. The patient must also have taken their antihistamine the day of the injection, preferably 2 hours prior. The consent form for SCIT (subcutaneous immunotherapy) is on file. * Medical History: Objective: * Vitals: Assessment: * Assessment: 1. A llergic rhinitis due to pollen - J30.1 (Primary) 2 . O ther allergic rhinitis - J30.89 3 . A llergic rhinitis due to animal (cat) (dog) hair and dander - J30.81 4 . O ther chronic allergic conjunctivitis - H10.45 Plan: * Treatment: * Preventive Medicine: Counseling: E xercise A void heavy lifting on days of allergy immunotherapy. M edication instruction: I njectable epinephrine education and instruction w/ discussion of signs and symptoms of anaphylaxis and reasons to seek urgent or emergent care, Watch for side effects of prescribed medications. E ducation: A ble to return demonstration of self-injectable epinephrine. * Follow Up: A s scheduled * Billing Information: * Visit Code: * Procedure Codes: 32589 IMMUNOTHERAPY INJECTIONS. * Electronic signature of Patahmet Winn MD, FAAAAI on 04/29/2025 at 03:12 PM CDT Sign off status: Pending * Provider: Jill Winn MD Date: 0 06/02/2024 Generated for Radha saldana/Anamika/Luis Fernando on: 0 04/29/2025 03:12 PM CDT History and Physical Notes * HPI (History of Present Illness) Category Sub-Category Detail Notes Category Not es *Introduction The patient is here for scheduled immunotherapy. Please see the attached specialty form regarding the specifics of the administration of these vaccines. As per our protocol, they must undergo a screening health questionnaire (medication changes, reaction(s) to last immunotherapy dose(s), current health status, ACT (if appropriate), self-injectable epinephrine on patient(?) and peak flow (if appropriate)). Also, the patient must wait in our office for 30 minutes after receiving the vaccine(s). Furthermore, every patient must have an epinephrine pen (self-injectable) with them at the time of administration--and carry if for the following 1.5 hours after they leave our office. The patient must also have taken their antihistamine the day of the injection, preferably 2 hours prior. The consent form for SCIT (subcutaneous immunotherapy) is on file.
--- OUTSIDE RECORDS SUMMARY | 2024-06-03 11:10 | XMS_ITS ---
Author Organization [facility] [place] ([address]) Address [address] [place] [address] Care Team Providers Care Inventory Audit Clerk Name Role Phone Uriah Melo Unavailable [phone] Loco Klein MD Unavailable UnavailMaynor Massey [phone] REASON FOR VISIT SCIT - Traditional Schedule Allergy Immunotherapy (Week ) Encounters Encounter Location Date Provider Diagnosis [facility] [address] [place] [address] 06/03/2024 Maynor Winn Allergic rhinitis du e to pollen J30.1 ; Other allergic rhinitis J30.89 ; Allergic rhinitis due to animal (cat) (dog) hair and dander J30.81 and Other chronic allergic conjunctivitis H10.45 Assessments Encounter Date Diagnosis (ICD Code) Assessment Notes Treatment Notes Treatment Clinical Notes Section Notes 06/03/2024 Allergic rhinitis due to pollen (ICD-10 - J30.1) 06/03/2024 Other allergic rhinitis (ICD-10 - J30.89) 06/03/2024 Allergic rhinitis due to animal (cat) (dog) hair and dander (ICD-10 - J30.81) 06/03/2024 Other chronic allergic conjunctivitis (ICD-10 - H10.45) Plan Of Treatment Next Appt Details Follow Up: As scheduled, Selina son: Progress Notes * Ford WLISON GDOB:11/1954 (69 yo M)Acc No.[id number]:06/03/2024 SCIT-Aeroallergen Patient: Ford GIL Provider: Jill Winn MD :1955 A ge:68 Y S ex:Male Date:06/03/2024 Address[facility] [address] Subjective: * Chief Complaints: * 1 . [...] Information: * Visit Code: * Procedure Codes: 14098 IMMUNOTHERAPY INJECTIONS. * Electronic signature of Patahmet Winn MD, FAAAAI on 04/29/2025 at 03:12 PM CDT Sign off status: Pending * Provider: Jill Winn MD Date: 0 06/03/2024 Generated for Radha saldana/Anamika/Luis Fernando on: 0 [...]
[2025-04-29 14:45] VITALS: BP 138/74; PULSE 73; RESP 16; TEMP 36.6; O2SAT 100
--- NOTE | 2025-04-29 15:05 | ED_ITS ---
HPI - Abdominal Pain General Chief Complaint: Abdominal Pain Stated Complaint: diarrhea, stomach water Time Seen by Provider: 04/29/25 14:55 Source: patient and RN notes reviewed Mode of arrival: ambulatory Limitations: no limitations History of Present Illness HPI narrative: 69-year-old male presented for complaint of generalized abdominal pain and bloating for 2 weeks following return from [place] vacation. Endorses a week of diarrhea at onset which he says has resolved after taking Imodium. Pt admits to drinking the water and eating raw fruits and vegetables in [place]. Says even drinking water or any food causes bloating and pain. Denies associated nausea, vomiting, decreased appetite, fever, hematochezia or melena. Hx yulia and appy. Related Data Home Medications ?Medication ?Instructions ?Recorded ?Confirmed ?Last Taken ?Type fluticasone 250 mcg-salmeterol 50 2 inh inhalation BINDU LY 05/24/22 07/27/23 Unknown History mcg/dose blistr powdr for inhalation (Advair Diskus) Allergies Allergy/AdvReac Type Severity Reaction Status Date / Time No Known Allergies Allergy Verified 04/29/25 14:48 Review of Systems Review of Systems: CONSTITUTIONAL: Denies body aches, fever, chills ENT: Denies rhinorrhea, congestion CARDIOVASCULAR: Denies chest pain, palpitations, or edema. RESPIRATORY: Denies cough or dyspnea. GASTROINTESTINAL: Endorses abdominal pain, Denies nausea, vomiting, diarrhea, hematochezia, melena GENITOURINARY: Denies dysuria, hematuria, or CVA tenderness. SKIN: Denies rash, itching, or wounds. MUSCULOSKELETAL: Denies back pain, joint pain, or myalgia. NEUROLOGIC: Denies headache, numbness, tingling, or weakness. All systems reviewed & are unremarkable except as noted in HPI and below PMFSH Past Medical History Medical History (Updated 04/29/25 @ 15:51 by Tiffanie Jaramillo APRN) Hx of gastroesophageal reflux (GERD) Hypercholesterolemia Hypertension Tachycardia-bradycardia syndrome Surgical History Surgical History (Updated 04/29/25 @ 15:51 by Tiffanie Jaramillo APRN) History of appendectomy History of cholecystectomy History of pacemaker Family History Family History Father Family history of congestive heart failure Mother Heart disease Social History Social History Smoking status: Never smoker Second hand tobacco smoke exposure: No Alcohol intake: current Drinks per week: 6 Alcohol use details: wine Substance use: never Living arrangements: with family Occupation/Education: occupation Additional occupation/education comments: Contractor Gender identity (if verbalized by the patient): Male Comments At time of signature, I have reviewed and agree with nursing past medical, surgical, social and family history unless otherwise noted. Please see nursing chart for further information. There is no relevant family history pertinent to the presenting complaint Exam Narrative: GENERAL: Well-appearing, and in no acute distress. EYES: EOMI. Conjunctivae normal. ENT: Mucous membranes pink and moist. CHEST: No respiratory distress. Clear to auscultation. HEART: Regular rate and rhythm. No murmur appreciated. Normal peripheral pulses. ABDOMEN: abd soft, distended, normal active bowel sounds. Generalized Tender abdomen. No guarding, rebound tenderness, asymmetry EXTREMITIES: Normal range of motion. No edema. SKIN: Warm, dry, no rash. Capillary refill normal. Normal skin turgor. NEURO: No focal deficits. Alert and oriented x3. PSYCH: Normal affect. Course Course Emergency Course: Patient is aware of diagnosis, understands and agrees to treatment plan. Anticipatory guidance given. Patient agrees to follow-up as directed and is aware of reasons to seek care at the emergency department. Portions of this record may have been created with voice recognition software Level of Care: Express Care Visit Vital Signs Vital signs: Vital Signs Temperature 97.8 F 04/29/25 14:45 Pulse Rate 73 04/29/25 14:45 Respiratory Rate 16 04/29/25 14:45 Blood Pressure 138/74 04/29/25 14:45 Pulse Oximetry 100 04/29/25 14:45 Oxygen Delivery Room Air 04/29/25 14:45 Temperature 97.8 F 04/29/25 14:45 Pulse Rate 73 04/29/25 14:45 Respiratory Rate 16 04/29/25 14:45 Blood Pressure 138/74 04/29/25 14:45 Pulse Oximetry 100 04/29/25 14:45 Oxygen Delivery Room Air 04/29/25 14:45 MDM - Abdominal Pain MDM Narrative Medical decision making narrative: Complaint of abdominal pain and bloating for week. He states his diarrhea has resolved. He says he is concerned for parasitic infection. Discussed possible etiologies of symptoms. Advised ER transfer for further evaluation and testing. Endorses he has to travel tomorrow for reunion and does not want to go to the emergency room today. He is agreeable to try antibiotic only. He is aware this is likely not curative, and if no improvement he should seek ER evaluation. He is in stable condition; VSS. The patient is AA&Ox3, free from distracting injury. 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 Given the patients presentation, we communicated our concern for abdominal pain and bloating in laymans terms. The patient verbalized an understanding. The patient is aware the evaluation is incomplete & many troublesome conditions have not been r/o. We have discussed the need for further ED evaluation including labs and stool studies or imaging etc. We have discussed the range of possible dx, potential testing & treatment options. Weve made efforts to prevent the pt from leaving AMA. Our discussions included the potential outcomes of leaving AMA, including worsening of their condition, becoming permanently disabled/in pain/critically ill, or . Despite these efforts, we were unable to convince the pt to go to the ER. We have attempted to offer tx/rx/guidance for any dangerous conditions which are most likely and/or dangerous. We have answered all questions and have implored the patient to go to ER [facility] to complete the w/u. A staff member witnessed the patient consenting to AMA. Differential Diagnosis Differential diagnosis: Likely abdominal pain, calculus of kidney, constipation, diverticulitis, gastroenteritis, pancreatitis, small bowel obstruction and other (viral infection, parasitic infection) Discharge Plan Discharge Clinical Impression: Abdominal pain Patient Disposition: Left Against Medical Advice Condition: Stable Instructions: Traveler's Diarrhea (ED) Additional Instructions: You were advised to transfer to the ER for further evaluation of your persistent abdominal pain and bloating. and you decline to go at this time. You were made aware of the risk of refusal including worsening of your condition and . Report to the ER immediately by calling 911 for any worsening symptoms. Stay hydrated. Take small sips of fluid containing electrolytes frequently. Clear liquids (broth, jello, tea, sprite, pedialyte) [place] foods (bananas, rice, applesauce, toast, crackers) Avoid fatty, greasy, fried or spicy foods. Limit dairy until symptoms are improved. Recommend probiotic such as align or lactobacillus to help with symptoms. You should go to the hospital if you experience persistent nausea and vomiting that does not resolve and does not allow you to tolerate any food or fluids, fevers, increasing abdominal pain, persistent diarrhea, dizziness, fainting, or for any other concerns. Follow up with primary care provider in 3 days. Patient Language: Czech Prescriptions: New azithromycin [Zithromax Z-Sukhi] 250 mg tablet See Rx Instructions .ROUTE .COMPLEX Qty: 6 0RF Rx Instructions: For 250 mg dose pack: take 500 mg today (day 1), then 250 mg for 4 days (days 2-5) No Action fluticasone propion-salmeterol [Advair Diskus] 250-50 mcg/dose blister with device 2 inh INHALATION DAILY albuterol sulfate [ProAir HFA] 90 mcg/actuation HFA aerosol inhaler 2 puff inhalation QID PRN (Reason: shortness of breath or wheezing) Qty: 6.7 0RF fluticasone propionate 50 mcg/actuation spray,suspension 1 spray intranasal BID Qty: 16 5RF Rx Instructions: administer into each nostril tadalafil 20 mg tablet 20 mg PO DAILY PRN (Reason: sexual activity) Qty: 24 3RF Rx Instructions: administer approximately 30min before sexual activity; do not use more than 1 dose per 24hrs cetirizine [Zyrtec] 10 mg tablet 10 mg PO DAILY Qty: 90 1RF cholecalciferol (vitamin D3) 50 mcg (2,000 unit) capsule 50 mcg PO DAILY Qty: 90 2RF atenolol 100 mg tablet 100 mg PO DAILY Qty: 90 3RF losartan-hydrochlorothiazide 50-12.5 mg tablet 1 tablet PO DAILY Qty: 90 1RF pantoprazole 40 mg tablet,delayed release (DR/EC) 40 mg PO QAM Qty: 90 1RF atorvastatin 20 mg tablet 20 mg PO DAILY Qty: 30 0RF Follow-up/Referrals: [facility] [Primary Care Provider, Medical] Time of Disposition: 15:11
--- OUTSIDE RECORDS SUMMARY | 2025-04-29 15:12 | XMS_ITS | Patient Health Record ---
Author Organization [facility] [employer] [facility] [employer] ([id number]) Address [address] [place] [address] Care Team Providers Care Bead Supervisor Name Role Phone Uriah Melo Unavailable [phone] Loco Klein MD Unavailable UnavailMaynor Massey Unavailable [phone] Allergies No Known Allergies Reason For Referral No Information Medications Medication SIG (Take, Route, Frequency, Duration) Notes Start Date End Date Status SIT (CLUSTER) VARIABLE PER SCHEDULE SC PER SCHEDULE; Duration: TO BE DETERMINED *Please review for potential replacement for e-prescription and drug interaction check* 03/15/2022 Not-Taking David Allergy 180 MG 1 tab(s) orally once a day Not-Taking Flovent HFA CFC FREE 44 MCG/INH 2 PUFF(S) INHALED 2 TIMES A DAY; Duration: 90 DAYS *Please review and pick correct strength-formula tion from Weekdone options. If intended option is not shown, discontinue and re-order from Quick Search* Not-Taking XYZAL 5 mg 1 tablet PO daily; Duration: 90 days Active Fluticasone Propionate 50 MCG/ACT 1 spray(s) in each nostril twice a day; Duration: 30 days due for f/u in 1 month Active ATENOLOL 25 mg 1 tab(s) orally once a day Active ALBUTEROL (EQV-PROVENTIL HFA) 90 MCG/INH 2 PUFF(S) INHALED EVERY 6 HOURS, NEEDED; Duration: 30 DAYS *Please review for potential replacement for e-prescription and drug interaction check* Active PANTOPRAZOLE 40 mg 1 tab(s) orally once a day Active NASAL WASHES N/A DIRECTED INTRANASALLY NEEDED; Duration: 30 *Please review for potential replacement for e-prescription and drug interaction check* Active VITAMIN D3 1000 intl units 1 tab(s) chewed once a day Active Xyzal Allergy 24HR 5 MG 1 tablet PO daily; Duration: 90 days Active HYDROCHLOROTHIAZIDE -LOSARTAN 12.5 mg-50 mg ; Duration: 90 Active EpiPen 2-Sukhi 0.3 MG/0.3ML 0.3 mg intramuscularly once; Duration: 30 day(s) Active Azelastine HCl 137 MCG/SPRAY 2 spray(s) intranasally 2 times a day; Duration: 90 days Active Triamcinolone Acetonide 55 MCG/ACT 2 spray(s) in each nostril twicea day; Duration: 90 days Active SIT (TRADITIONAL) VARIABLE PER SCHEDULE SC PER SCHEDULE; Duration: 999 DAYS *Please review for potential replacement for e-prescription and drug interaction check* Active PREDNISONE 10 mg 1 tab(s) orally once a day; Duration: 30 day(s) Not-Taking NEXIUM 20 mg 1 cap(s) orally once a day; Duration: 30 day(s) Not-Taking Trelegy Ellipta 100 MCG-62.5 MCG-25 MCG/INH 1 PUFF(S) INHALED ONCE A DAY; Duration: 30 DAYS *Please review and pick correct strength-formula tion from Weekdone options. If intended option is not shown, discontinue and re-order from Quick Search* Active Breztri Aerosphere 160 MCG-4.8 MCG-9 MCG/INH 2 PUFF(S) INHALED 2 TIMES A DAY; Duration: 30 DAYS *Please review and pick correct strength-formula tion from Weekdone options. If intended option is not shown, discontinue and re-order from Quick Search* Active Singulair 10 MG 1 tab(s) orally once a day; Duration: 90 days Not-Taking XYZAL 5 mg 1 tablet PO daily; Duration: 90 days Active PROAIR HFA 90 MCG/INH 2 PUFF(S) INHALED Q4-6 HOURS, PRN AND PER THE ASTHMA ACTION PLAN; Duration: 30 DAY(S) *Please review for potential replacement for e-prescription and drug interaction check* Not-Taking FLUTICASONE NASAL 50 mcg/inh 1 spray(s) in each nostril twice a day; Duration: 30 days Active BREZTRI AEROSPHERE 160 mcg-4.8 mcg-9 mcg/inh 2 puff(s) inhaled 2 times a day; Duration: 30 days Active TRELEGY ELLIPTA 100 mcg-62.5 mcg-25 mcg/inh 1 puff(s) inhaled once a day; Duration: 30 days Active FLUTICASONE NASAL 50 mcg/inh 1 spray(s) in each nostril twice a day; Duration: 30 days Active DAVID 24 HOUR ALLERGY 180 mg 1 tab(s) orally once a day Not-Taking FLOVENT HFA CFC free 44 mcg/inh 2 puff(s) inhaled 2 times a day; Duration: 90 days Not-Taking TRIAMCINOLONE ACETONIDE NASAL 55 mcg/inh 2 spray(s) in each nostril twicea day; Duration: 90 days Active TRELEGY ELLIPTA 100 mcg-62.5 mcg-25 mcg/inh 1 puff(s) inhaled once a day; Duration: 30 days Active SINGULAIR 10 mg 1 tab(s) orally once a day; Duration: 90 days Not-Taking AZELASTINE HYDROCHLORIDE NASAL 137 mcg/inh 2 spray(s) intranasally 2 times a day; Duration: 90 days Active EPIPEN 2-SUKHI 0.3 mg 0.3 mg intramuscularly once; Duration: 30 day(s) Active ADVAIR DISKUS 500 mcg-50 mcg 1 inh inhaled 2 times a day; Duration: 30 days Active Atenolol 25 MG 1 tab(s) orally once a day Active Advair Diskus 500 MCG-50 MCG 1 INH INHALED 2 TIMES A DAY; Duration: 30 DAYS *Please review and pick correct strength-formula tion from Weekdone options. If intended option is not shown, discontinue and re-order from Quick Search* Active Pantoprazole Sodium 40 MG 1 tab(s) orally once a day Active Vitamin D3 25 MCG (1000 UT) 1 tab(s) chewed once a day Active Losartan Potassium-HCTZ 50-12.5 MG ; Duration: 90 Active SIT (TRADITIONAL) VARIABLE PER SCHEDULE SC PER SCHEDULE; Duration: TO BE DETERMINED *Please review for potential replacement for e-prescription and drug interaction check* Active predniSONE 10 MG 1 tab(s) orally once a day; Duration: 30 day(s) Not-Taking NexIUM 20 MG 1 cap(s) orally once a day; Duration: 30 day(s) Not-Taking Social History Tobacco Use: Social History Observation Description Date Details (start date - stop date) Former Smoker NA - NA Smoking Smart Form: Question Answer Notes Are you a: former smoker When did you stop smoking? 09/10/1980 Tobacco Control (Standard) Question Answer Notes Tobacco use: Former smoker Problems Problem Type SNOMED Code ICD Code Onset Dates Problem Status W/U Status Risk Notes Problem Chronic migraine without aura, non-refractory (disorder) (696694666292439) Migraine without aura, not intractable, without status migrainosus (G43.009) Active confirmed Problem Migraine with aura (1376135) Migraine with aura, not intractable, without status migrainosus (G43.109) Active confirmed Problem Chronic migraine without aura, non-intractable (337565616531206) Chronic migraine without aura, not intractable, without status migrainosus (G43.709) Active confirmed Problem Chronic allergic conjunctivitis (61234159) Other chronic allergic conjunctivitis (H10.45) Active confirmed Problem Cardiac arrhythmia (664079410) Cardiac arrhythmia, unspecified (I49.9) Active confirmed Problem Allergic rhinitis caused by pollen (disorder) (83954929) Allergic rhinitis due to pollen (J30.1) Active confirmed Problem Allergic rhinitis caused by animal hair and dander (706346890688318) Allergic rhinitis due to animal (cat) (dog) hair and dander (J30.81) Active confirmed Problem Allergic rhinitis (54389026) Other allergic rhinitis (J30.89) Active confirmed Problem Chronic rhinitis (49844813) Chronic rhinitis (J31.0) Active confirmed Problem Uncomplicated mild persistent asthma (418525988) Mild persistent asthma, uncomplicated (J45.30) Active confirmed Problem Uncomplicated moderate persistent asthma (105129161) Moderate persistent asthma, uncomplicated (J45.40) Active confirmed Problem Uncomplicated severe persistent asthma (846692013) Severe persistent asthma, uncomplicated (J45.50) Active confirmed Problem Allergic rhinitis caused by pollen (disorder) (57372694) Allergic rhinitis due to pollen (J30.1) Active confirmed Problem Allergic rhinitis caused by animal hair and dander (650174702446584) Allergic rhinitis due to animal (cat) (dog) hair and dander (J30.81) Active confirmed Problem Allergic rhinitis (92002893) Other allergic rhinitis (J30.89) Active confirmed Problem Chronic allergic conjunctivitis (74943179) Other chronic allergic conjunctivitis (H10.45) Active confirmed Problem Wheezing (81121709) Wheezing (R06.2) Active confirmed Problem Elevated blood pressure reading without diagnosis of hypertension (561672931) Elevated blood-pressure reading, without diagnosis of hypertension (R03.0) Active confirmed Problem Shortness of breath (219955331) Shortness of breath (R06.02) Active confirmed Problem Headache (62988909) Headache, unspecified (R51.9) Active confirmed Encounters Encounter Location Date Provider Diagnosis [facility] [address] [place] [address] 05/05/2024 Maynor Pa Allergic rhinitis du e to pollen J30.1 ; Other allergic rhinitis J30.89 ; Allergic rhinitis due to animal (cat) (dog) hair and dander J30.81 and Other chronic allergic conjunctivitis H10.45 Assessments Encounter Date Diagnosis (ICD Code) Assessment Notes Treatment Notes Treatment Clinical Notes Section Notes 05/05/2024 Allergic rhinitis due to pollen (ICD-10 - J30.1) 05/05/2024 Other allergic rhinitis (ICD-10 - J30.89) 05/05/2024 Allergic rhinitis due to animal (cat) (dog) hair and dander (ICD-10 - J30.81) 05/05/2024 Other chronic allergic conjunctivitis (ICD-10 - H10.45) Plan Of Treatment No Information Insurance Providers Payer Name Payer Address Payer Phone Subscriber Number Group Number Insured Name Patient Relationship to Insured Coverage Start Date Coverage End Date [employer] (Medicare) Attention Claims [address] [place] [address] [id number] Carmine joseFord Self - patient is the insured for Life [address] [place] [address] [phone] [id number] Carmine jose Ford Self - patient is the insured Medical (General) History Medical History History ICD Code Other specified cardiac arrhythmias I49. 8 Essential (primary) hypertension I10 Hyperlipidemia, unspecified E78.5 Allergic rhinitis due to pollen J30.1 Shortness of breath R06.02 Allergic rhinitis due to animal (cat) (d og) hair and dander J30.81 Other allergic rhinitis J30.89 Other chronic allergic conjunctivitis H1 0.45 Surgical History Surgery Date(Month/Year) Left Knee Surgery Heart Surgery/Pacemaker 2001 Tonsillectomy appendectomy cholecystectomy Cardiac Ablation (3) pacemaker replacement 02/2023
--- OUTSIDE RECORDS SUMMARY | 2025-04-29 15:12 | XMS_ITS | Clinical Summary ---
Author Organization [facility] [address] [place] [address] Care Team Providers Care Podiatric Assistant Name Role Phone Ryan Saxena MD Primary Care Provider [phone] Nola Sanches MD Unavailable Allergies Active Allergy Reactions Criticality Noted Date Comments Dog Dander Shortness of breath High 10/26/2020 Grass Pollen Shortness of breath High 10/26/2020 Medications atenoloL (TENORMIN) 100 mg tablet Take 1 tablet (100 mg total) by mouth daily 6 Active cholecalcifero l (VITAMIN D-3) 2000 unit tablet 0 Active Flovent HFA 44 mcg/actuation inhaler 0 Active fluticasone propionate (FLONASE) 50 mcg/actuation nasal spray Administer 2 sprays into affected nostril(s) daily 7 Active cetirizine (ZyrTEC) 10 mg tablet 0 Active atorvastatin (LIPITOR) 10 mg tablet [address] (NexIUM) 20 mg capsule Take 1 capsule (20 mg total) by mouth daily 1 Active tadalafiL (CIALIS) 20 mg tablet TAKE 1 TABLET BY MOUTH ONCE DAILY NEEDED FOR SEXUAL ACTIVITY. TAKE APPROXIMATELY 30 MINUTES BEFORE SEXUAL ACTIVITY. DO NOT USE MORE THAN 1 Active amLODIPine (NORVASC) 10 mg tablet 1 Active Active Problems Problem Noted Date Diagnosed Date Lumbar radiculopathy, right 08/09/2020 Assessment & Plan (02/14/2021 2:37 PM CDT): Patient has chronic low back pain refractory to medication and pain management interventions. He has a 2 year history of right calf atrophy and numbness over the dorsum of the foot in a distribution consistent with a right L5 radiculopathy. I will obtain EMG/NCS testing at [facility]. Given the medically refractive miss of his symptoms, he will likely ultimately need a surgery as previously recommended. I will see him back upon completion of testing. Pacemaker 12/04/2017 Arthralgia of shoulder 10/19/2010 Immunizations Immunization Administration Dates Next Due Influenza, Quadrivalent, Split, Intramuscular Influenza, Quadrivalent, Spl it, Preservative Free, Intramuscular 05/10/2020,10/25/2018 Influenza, Trivalent, High D ose, Split, Preservative Free, Intramuscular 05/15/2019 Tdap 04/07/2018 Surgical History Surgery Date Site/Laterality Comments KNEE SURGERY INSERT / REPLACE / REMOVE PACEMAKER CHOLECYSTECTOMY APPENDECTOMY CARDIAC SURGERY Medical History Medical History Date Comments Arthritis Asthma Hypertension High cholesterol Family History Medical History Relation Name Comments defects Brother enlarged heart Father Hypertension Mother in surgery Mother Hyperlipidemia Sister 1 Hypertension Sister 1 No Known Problems Sister 2 No Known Problems Sister 3 No Known Problems Sister 4 Relation Name Status Comments Brother Father Mother Sister 1 Alive Sister 2 Alive Sister 3 Alive Sister 4 Alive Social History Tobacco Use Types Packs/Day Years Used Date Smoking Tobacco: Former Smokeless Tobacco: Never Tobacco Cessation:Counseling Given: Not Answered AUDIT-C Answer Date Recorded Q1: How often do you have a drink containing alc ohol? 2-3 times a week 03/09/2023 Q2: How many drinks containi ng alcohol do you have on a typical day when you are drinking? 1 or 2 03/09/2023 Q3: How often do you have si x or more drinks on one occasion? Never 03/09/2023 Personal Safety Answer Date Recorded Getting School Help Needed Not on file 08/26 Sex and Gender Information Value Date Recorded Sex Assigned at Not on file Legal Sex Male 10:50 PM [employer] Gender Identity Not on file Sexual Orientation Not on file Obstetrics History Last Filed Vital Signs Vital Sign Reading Time Taken Comments Blood Pressure 159/98 03/09/2023 8:24 AM CDT Pulse 66 03/09/2023 8:24 AM CDT Temperature 36.4 C (97.6 F) 03/09/2023 7:40 AM CDT Respiratory Rate 18 03/09/2023 8:24 AM CDT Oxygen Saturation 99% 03/09/2023 8:24 AM CDT Inhaled Oxygen Concentration - - Weight 95.8 kg (211 lb 3.2 oz) 02/15/2023 2:22 P M CDT Height 182.9 cm (6') 02/15/2023 2:22 PM CDT Body Mass Index 28.64 02/15/2023 2:22 PM CDT Plan of Treatment Health Maintenance Due Date Last Done Comments Colon Cancer Screening-Colonoscopy 1956 Depression Screening 1956 Fall Risk Assessment 1956 Hepatitis C Screening 1956 Prostate Cancer Screening-PSA 1956 Hepatitis B Screening 1974 Pneumococcal vaccine 65+ (1 of 1 - PCV) 2006 Zoster Vaccine (1 of 2) 2006 Abdominal Aortic Aneurysm (A AA) Screen 2021 Well Visit 65+ 2021 Influenza Vaccine (#1) 2025 0, 05/15/2019, 05/15/2019, Additional history exists DTaP/Tdap/Td Vaccine (2 - Td or Tdap) 04/07/2028 04/07/2018 Insurance [employer] MEDICARE MEDICARE [facility] MEDICARE FOR LIFE Care Teams Podiatric Assistant Relationship Specialty Start Date End Date Ryan Saxena MD [address] [facility] [address] [place] [address] PCP - General 05/03/20 Nola Sanches MD [address] [facility], [address] [address] Consulting Physician Pain Management 02/15/23
--- OUTSIDE RECORDS SUMMARY | 2025-04-29 15:13 | XMS_ITS | Clinical Summary ---
Author Organization [facility] [employer] Address [address] [place] [address] Care Team Providers Care Pipe Blanks Cut Off Saw Operator Name Role Phone Unknown, Provider Primary Care Provider Unavaila ble Source Comments [facility],non-owned Affiliates and Associated Physician Practices is amultiple site organization consisting of ambulatory clinics and hospital sitesin [place], [place], [place] and [place]. This disclosure is being madepursuant to the Care Everywhere program and may not contain all information available regarding this patient. Last updated 18.[facility] [employer] Allergies No known active allergies Medications * Be aware that medications may not be up to date on this document. Alwaysverify current medications with the patient. ATENOLOL PO Active Esomeprazole Magnesium (NEXIUM PO) Active HYDROCHLOROTHIA ZIDE PO Active Celecoxib (CELEBREX PO) Active azithromycin (ZITHROMAX) 250 MG tablet Take 2 tablets now, then 1 tablet daily for 4 days. 6 Tab 6 Active albuterol HFA (VENTOLIN HFA) 108 (90 BASE) MCG/ACT inhaler Inhale 2 Puffs by mouth every 6 hours as needed for Shortness of Breath, Wheezing or Cough 1 Inhaler 6 Active Social History Tobacco Use Types Packs/Day Years Used Date Smoking Tobacco: Former Sex and Gender Information Value Date Recorded Sex Assigned at Not on file Legal Sex Male 6:32 PM MARKETING COMMUNICATION MANAGER Gender Identity Not on file Sexual Orientation Not on file Last Filed Vital Signs Vital Sign Reading Time Taken Comments Blood Pressure 142/90 08/31/2016 5:38 PM MARKETING COMMUNICATION MANAGER Pulse 82 08/31/2016 5:38 PM MARKETING COMMUNICATION MANAGER Temperature 36.9 C (98.4 F) 08/31/2016 5:38 PM MARKETING COMMUNICATION MANAGER Respiratory Rate 16 08/31/2016 5:38 PM MARKETING COMMUNICATION MANAGER Oxygen Saturation 97% 08/31/2016 5:38 PM MARKETING COMMUNICATION MANAGER Inhaled Oxygen Concentration - - Weight 89.4 kg (197 lb) 08/31/2016 5:38 PM MARKETING COMMUNICATION MANAGER Height 179.1 cm (5' 10.5) 08/31/2016 5:38 PM CS T Body Mass Index 27.87 08/31/2016 5:38 PM MARKETING COMMUNICATION MANAGER Plan of Treatment Health Maintenance Due Date Last Done Comments COLOGUARD (AGES 45-75) - COL ON CA SCREENING 1955 COLON MONITORING 1956 COLONOSCOPY - COLON CA SCREENING 1956 CT COLONOGRAPHY - COLON CA SCREENING 1955 Colorectal Cancer Screening 1956 FIT - COLON CA SCREENING 1956 FLEX SIG - COLON CA SCREENING 1955 LIPID TESTING 1955 HEPATITIS C SCREENING 07/09/1974 DTAP/TDAP/TD VACCINES (1 - Tdap) 1975 PNEUMOCOCCAL VACCINE 50+ (1 of 1 - PCV) 2006 ZOSTER VACCINE (1 of 2) 2006 AAA SCREENING 2021 COVID-19 VACCINE (1 - 2023-2 5 season) 2024 DEPRESSION SCREENING 09/10/2024 INFLUENZA VACCINE (#1) 2025 Respiratory Syncytial Virus (RSV) Vaccine Pt: or over 60 yrs (1 - 1-dose 75+ series) 2031 HEPATITIS B VACCINE Aged Out No longe r eligible based on patient's age to complete this topic HIB VACCINE Aged Out No longer eligi ble based on patient's age to complete this topic HPV VACCINE Aged Out No longer eligi ble based on patient's age to complete this topic MENINGOCOCCAL (Group B) VACC INE SHARED DECISION-MAKING Aged Out No longer eligibl e based on patient's age to complete this topic MENINGOCOCCAL GROUPS A/C/Y/W VACCINE Aged Out No longer eligible b ased on patient's age to [place] [address] [facility] [place] [id number] MEDICARE Care Teams Pipe Blanks Cut Off Saw Operator Relationship Specialty Start Date End Date Unknown, Provider PCP - General 08/31/16
--- OUTSIDE RECORDS SUMMARY | 2025-04-29 15:13 | XMS_ITS | Encounter Summary ---
Author Organization [facility] Address [address] [place] [address] Care Team Providers Care Chemistry Intern Name Role Phone Unknown, Provider Primary Care Provider Unavaila ble Encounter Details Date Type Department Care Team (Late st Contact Info) Description 12/22/2021 Lab Requisition [facility] Derm[facility] Lab [address] [place] [address] Lawrence Rodriguez MD [address] [place] [address] Social History Tobacco Use Types Packs/Day Years Used Date Smoking Tobacco: Never Assessed Sex and Gender Information Value Date Recorded Sex Assigned at Not on file Legal Sex Male 6:32 PM VEGETABLE TIER Gender Identity Not on file Sexual Orientation Not on file documented as of this encounter Plan of Treatment Not on file documented as of this encounter Procedures Procedure Name Priority Date/Time Associated Diagnosis Comments DERMATOPATHOLOGY Routine 12/21/2021 3:33 AM CDT documented in this encounter Results * DERMATOPATHOLOGY (12/21/2021 3:33 AM CDT) Case Report Dermatopathology Report Case: [id number] Authorizing Provider: Lawrence Rodriguez MD Collected: 12/21/2021 03:33 AM Ordering Location: [facility] Lab Received: 12/22/2021 09:55 AM Pathologist: Keagan Yee MD Specimen: Skin, left forearm 2 5:04 PM CDT DERMATOPATHOLOGY LABORATORY Final Diagnosis Specimen A. 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 The specimen consists of a shave biopsy measuring [id number]. Jar 0. 2 5:04 PM CDT DERMATOPATHOLOGY LABORATORY Microscopic Description Specimen A. SKIN, left forearm: There is a dome-shaped portion of skin with psoriasiform epidermal hyperplasia, compact hyperkeratosis, and fibrosis of the papillary dermis associated with a superficial perivascular lymphohistiocytic infiltrate. Grocott's methenamine silver (GMS) stain is negative for fungal elements in the sections examined. 2 5:04 PM CDT DERMATOPATHOLOGY LABORATORY Disclaimer An external and internal positive and negative controls are appropriate for the histochemical, immunohistochemical and immunofluorescence stain(s) in this case (if any), except where stated explicitly. The performance characteristics of the stain(s) cited in this report were developed and its performance characteristic determined by the Dermatopathology Laboratory at [facility], directed by Dr. Eddie Yee. These tests need not be, and therefore are not, approved by the [place] Food and Drug Administration. The tests are used for clinical purposes. Billing Codes Specimen Charges Stain Charges 83353 1 07392 1 2 5:04 PM CDT DERMATOPATHOLOGY LABORATORY Embedded Images 2 5:04 PM CDT DERMATOPATHOLOGY LABORATORY Pathology/Cytolo gy TISSUE SPECIMEN FROM SKIN / Unknown 12/21/2021 3:33 AM CDT 12/22/2021 9:55 AM CDT us Lawrence Rodriguez MD LAB - PATHOLOGY/CYTOLOGY ORDERAB LES Final Result DERMATOPATHOLOGY LABORATORY [facility] - Department of Dermatology [address], [address] Floor [address] [phone] documented in this encounter Visit Diagnoses Not on filedocumented in this encounter Care Teams Chemistry Intern Relationship Specialty Start Date End Date Unknown, Provider PCP - General 08/31/16 documented as of this encounter
--- OUTSIDE RECORDS SUMMARY | 2025-04-29 15:17 | XMS_ITS | Encounter Summary ---
Author Organization [facility] Address [address] [place] [address] Care Team Providers Care Foundry Engineer Name Role Phone Joe Coulter MD Unavailable [phone] Ryan Saxena MD Primary Care Provider [phone] Encounter Details Date Type Department Care Team (Late Contact Info) Description 04/08/2020 Abstract [facility] [address] [place] [address] Eric Moreno MA Social History Tobacco Use Types Packs/Day Years Used Date Smoking Tobacco: Former Cigarettes Smokeless Tobacco: Never Comments:Quit smoking 35+ ye ars ago Alcohol Use Standard Drinks/Week Comments Yes 0 (1 standard drink = 0.6 oz pur e alcohol) wine Sex and Gender Information Value Date Recorded Sex Assigned at Not on file Legal Sex Male 1:36 AM CDT Gender Identity Not on file Sexual Orientation Not on file Occupation Industry Job Start Date Job End Date Not on file Not on file Not on file Not on file documented as of this encounter Plan of Treatment Upcoming Encounters Date Type Department Care Team (Late Contact Info) Description 07/27/2025 11:30 AM FARM EQUIPMENT ENGINE MECHANIC Allied Health/Nurse Visit [facility], [facility] [address] [place] [address] Ford Samuels MD [facility]. [facility] [address] [place], [place] [phone] documented as of this encounter Procedures Procedure Name Priority Date/Time Associated Diagnosis Comments CBC (OUTSIDE LAB) Routine 05/22/2020 BASIC METABOLIC PANEL Routine 05/22/2020 PROTIME (OUTSIDE LAB) Routine 10/27/2018 CBC (OUTSIDE LAB) Routine 10/27/2018 COMPREHENSIVE METABOLIC PANEL Routine 10/27/2018 C-REACTIVE PROTEIN Routine 10/27/2018 documented in this encounter Results * BASIC METABOLIC PANEL (05/22/2020) SODIUM S/P/B 138 POTASSIUM S/P/B 3.5 CO2 23 CHLORIDE S/P/B 103 GLUCOSE 116 mg/dL CALCIUM S/P/B 9.4 BUN 18 CREATININE S/P/B 0.90 0.7 - 1.3 EGFR NON-AFR. AMER. >60 <=90 05/22/2020 us Doc [facility] LAB[facility]AT[facility] Final Result * CBC (OUTSIDE LAB) (05/22/2020) WBC 11.8 HGB 16.2 HCT 48 PLT 187 05/22/2020 us Doc [facility] Abstract LAB-OUTSIDE/ABSTRACTED Edite d Result - Final * PROTIME (OUTSIDE LAB) (10/27/2018) PROTIME 14.8 INR 1.2 10/27/2018 us Doc [facility] Abstract LAB-OUTSIDE/ABSTRACTED Final Result * CBC (OUTSIDE LAB) (10/27/2018) WBC 6.3 HGB 11.1 HCT 33.8 PLT 133 10/27/2018 us Doc [facility] Abstract LAB-OUTSIDE/ABSTRACTED Final Result * C-REACTIVE PROTEIN (10/27/2018) CRP 23.1 <1.0 10/27/2018 us Doc [facility] Abstract LABORATORY Final Result * COMPREHENSIVE METABOLIC PANEL (10/27/2018) SODIUM S/P/B 134 POTASSIUM S/P/B 3.9 CO2 25 CHLORIDE S/P/B 98 GLUCOSE 101 mg/dL CALCIUM S/P/B 9.0 BUN 12 CREATININE S/P/B 0.90 0.7 - 1.3 EGFR NON-AFR. AMER. >60 <=90 ALKALINE PHOSPHATASE S/P/B 49 ALT 49 AST 42 BILIRUBIN TOTAL S/P/B 1.0 ALBUMIN S/P/B 4.3 3.5 - 5.0 TOTAL PROTEIN S/P/B 7.0 10/27/2018 us Doc [facility] Abstract LABORATORY Final Result documented in this encounter Visit Diagnoses Not on filedocumented in this encounter Care Teams Foundry Engineer Relationship Specialty Start Date End Date Ryan Saxena MD [address] [place] [address] PCP - General INTERNAL MEDICINE 01/29/19 Joe Coulter MD [facility]. [address] [place] [address] [place] Size Stamper CARDIOVASCULAR DISEASE 09/10/17 documented as of this encounter
--- OUTSIDE RECORDS SUMMARY | 2025-04-29 15:17 | XMS_ITS | Encounter Summary ---
Author Organization [facility] Address [address] [place] [address] Care Team Providers Care Creative Services Producer Name Role Phone Joe Coulter MD Unavailable [phone] Ryan Saxena MD Primary Care Provider [phone] Encounter Details Date Type Department Care Team (Late Contact Info) Description 05/26/2021 Abstract [facility] [facility], [address] [id number] Eric Moreno MA Social History Tobacco Use [...] file Not on file Not on file COVID-19 Exposure Response Date Recorded In the last month, have you been in contact with someone who was confirmed or suspected to have Coronavirus / COVID-19? No / Unsure 05/24/2021 8:33 AM CDT documented as of this encounter Plan of Treatment Upcoming Encounters Date Type Department Care Team (Late Contact Info) Description 07/27/2025 11:30 AM COMPRESSOR ENGINEER Allied Health/Nurse Visit [facility] [facility], [facility] [address] [place], [place] [phone] Ford Samuels MD [facility]. [place] [address] [place] [address] documented as of this encounter Procedures Procedure Name Priority Date/Time Associated Diagnosis Comments BASIC METABOLIC PANEL Routine 05/25/2021 LIPID PANEL Routine 05/25/2021 CBC (OUTSIDE LAB) Routine 05/13/2021 documented in this encounter Results * BASIC METABOLIC PANEL (05/25/2021) SODIUM S/P/B 141 POTASSIUM S/P/B 3.5 CO2 32 CHLORIDE S/P/B 102 GLUCOSE 113 mg/dL CALCIUM S/P/B 9.9 BUN 29 CREATININE S/P/B 1.25 0.7 - 1.3 EGFR AFR. AMER. 70 <=90 EGFR NON-AFR. AMER. 60 <=90 05/25/2021 us Doc [facility] LAB[facility]AT[facility] Final Result * LIPID PANEL (05/25/2021) CHOLESTEROL 144 HDL 38 TRIGLYCERIDES 172 NON HDL CHOLESTEROL 106 LDL (CALCULATED) 79 05/25/2021 us Doc [facility] LABORATORY Final Result * CBC (OUTSIDE LAB) (05/13/2021) WBC 9.6 HGB 15.6 HCT 45.7 PLT 185 05/13/2021 us Doc [facility] Abstract LAB-OUTSIDE/ABSTRACTED Final Result documented in this encounter Visit Diagnoses Not on filedocumented in this encounter Care Teams Creative Services Producer Relationship Specialty Start Date End Date Ryan Saxena MD [address] [place] [address] [place], [place] [phone] PCP - General INTERNAL MEDICINE 01/29/19 Joe Coulter MD Three [facility]. [place] [address] [place] [address] [place] Dairy Truck Driver CARDIOVASCULAR DISEASE 09/10/17 documented as of this encounter
--- OUTSIDE RECORDS SUMMARY | 2025-04-29 15:17 | XMS_ITS | Encounter Summary ---
Author Organization [facility] Address [address] [place] [address] Care Team Providers Care Motorboat Mechanic Helper Name Role Phone Joe Coulter MD Unavailable [phone] Derek Nuñez MD Primary Care Provider [phone] Ryan Saxena MD Primary Care Provider [phone] Encounter Details Date Type Department Care Team (Late Contact Info) Description 12/04/2017 Abstract [facility] [address] [place], [place] [phone] Eric Moreno MA Social History Tobacco Use [...] Encounters Date Type Department Care Team (Late st Contact Info) Description 07/27/2025 11:30 AM TERADATA SOLUTION ARCHITECT Allied Health/Nurse Visit [facility], [address] [place], [place] [phone] Ford Samuels MD [facility]. [facility] [address] [place], [place] [phone] documented as of this encounter Procedures Procedure Name Priority Date/Time Associated Diagnosis Comments LIPID PANEL Routine 06/19/2018 HEPATIC FUNCTION PANEL Routine 06/19/2018 CBC (OUTSIDE LAB) Routine 07/17/2017 COMPREHENSIVE METABOLIC PANEL Routine 07/17/2017 LIPID PANEL Routine 04/16/2017 HEMOGLOBIN, GLYCOSYLATED Routine 04/16/2017 documented in this encounter Results * HEPATIC FUNCTION PANEL (06/19/2018) ALBUMIN S/P/B 4.5 3.5 - 5.0 ALKALINE PHOSPHATASE S/P/B 68 ALT 60 AST 35 BILIRUBIN DIRECT S/P/B 0.4 BILIRUBIN TOTAL S/P/B 1.3 TOTAL PROTEIN S/P/B 7.3 06/19/2018 us Doc [facility] Abstract LABORATORY Final Result * LIPID PANEL (06/19/2018) CHOLESTEROL 183 HDL 43 TRIGLYCERIDES 157 LDL (CALCULATED) 123 06/19/2018 us Doc [facility] Abstract LABORATORY Final Result * CBC (OUTSIDE LAB) (07/17/2017) WBC 7.1 HGB 14.4 HCT 42.5 PLT 192 07/17/2017 us Doc [facility] Abstract LAB-OUTSIDE/ABSTRACTED Final Result * (ABNORMAL) COMPREHENSIVE METABOLIC PANEL (07/17/2017) SODIUM S/P/B 142 POTASSIUM S/P/B 4.5 CO2 30 CHLORIDE S/P/B 106 GLUCOSE 101 mg/dL CALCIUM S/P/B 9.9 BUN 13 CREATININE S/P/B 0.9 0.7 - 1.3 EGFR AFR. AMER. 106 EGFR NON-AFR. AMER. 92(A) <=90 ALKALINE PHOSPHATASE S/P/B 54 ALT 46 AST 31 BILIRUBIN TOTAL S/P/B 0.7 ALBUMIN S/P/B 4.2 3.5 - 5.0 TOTAL PROTEIN S/P/B 7.0 07/17/2017 us Doc [facility] LAB[facility]AT[facility] Final Result * HEMOGLOBIN, GLYCOSYLATED (04/16/2017) HGB A1C 5.2 04/16/2017 us Doc [facility] LABORATORY Final Result * LIPID PANEL (04/16/2017) CHOLESTEROL 161 HDL 38 TRIGLYCERIDES 123 LDL (CALCULATED) 93 04/16/2017 us Doc [facility] Abstract LABORATORY Final Result documented in this encounter Visit Diagnoses Not on filedocumented in this encounter Care Teams Motorboat Mechanic Helper Relationship Specialty Start Date End Date Derek Nuñez MD [facility]. [address] [place] [address] PCP - General INTERNAL MEDICINE 09/10/17 01/28/19 Ryan Saxena MD [address] [place] [address] PCP - General INTERNAL MEDICINE 01/29/19 Joe Coulter MD [facility]. [address] [place] [address] [place] Button Maker CARDIOVASCULAR DISEASE 09/10/17 documented as of this encounter
--- OUTSIDE RECORDS SUMMARY | 2025-04-29 15:17 | XMS_ITS | Encounter Summary ---
Author Organization [facility] Address [address] [place] [address] Care Team Providers Care Manager Of Sustainability Name Role Phone Joe Coulter MD Unavailable [phone] Ryan Saxena MD Primary Care Provider [phone] Encounter Details Date Type Department Care Team (Late Contact Info) Description 04/07/2020 Abstract [facility], [facility] [address] [place] [address] Abstract, [facility] Social History Tobacco Use Types Packs/Day Years [...] (Late Contact Info) Description 07/27/2025 11:30 AM APPLICATOR SPRAYER Allied Health/Nurse Visit [facility], [facility] [address] [place], [place] [phone] Ford Samuels MD [facility]. [facility] [address] [place], [place] [phone] documented as of this encounter Visit Diagnoses Not on filedocumented in this encounter Care Teams Manager Of Sustainability Relationship Specialty Start Date End Date Ryan Saxena MD [address] [place] [address] PCP - General INTERNAL MEDICINE 01/29/19 Joe Coulter MD Three [facility]. [address] [place] [address] [place] Rental Agent CARDIOVASCULAR DISEASE 09/10/17 documented as of this encounter
--- OUTSIDE RECORDS SUMMARY | 2025-04-29 15:17 | XMS_ITS | Clinical Summary ---
Author Organization [facility] Address [facility] [place] [address] Care Team Providers Care Tie Tamper Name Role Phone Joe Coulter MD Unavailable [phone] Ryan Saxena MD Primary Care Provider [phone] Allergies Active Allergy Reactions Criticality Noted Date Comments Dog Dander Shortness of Breath High 10/26/2020 Grass Pollen(K-O-R-T-Swt Earl) Shortness of Breath High 10/26/2020 Medications atorvastatin 10 MG tablet Take 1 tablet (10 mg total) by mouth daily. 7 Active Cholecalcifero l (VITAMIN D) 2000 UNITS Tab Take 1 tablet (50 mcg total) by mouth daily. 7 Active fluticasone propionate 50 MCG/ACT nasal spray 2 sprays by Each Nostril route daily. 7 Active losartan-hydro CHLOROthiazide 50-12.5 MG tablet Take 1 tablet by mouth daily. 1 Active tadalafil 20 MG tablet TAKE 1 TABLET BY MOUTH ONCE DAILY NEEDED FOR SEXUAL ACTIVITY. TAKE APPROXIMATELY 30 MINUTES BEFORE SEXUAL ACTIVITY. DO NOT USE MORE THAN 1 Active atenolol 100 MG tablet Take 1 tablet (100 mg total) by mouth daily. Active pantoprazole EC (PROTONIX) 40 MG tablet Take 1 tablet (40 mg total) by mouth every morning. 3 Active EPINEPHrine 0.3 MG/0.3ML injection 2 Active fexofenadine (DAVID) 180 MG tablet daily. Active Active Problems Problem Noted Date Diagnosed Date Tachycardia 08/06/2024 Radiculopathy, lumbar region 08/09/2020 Atrial fibrillation ([facility]) 12/04/2017 SSS (sick sinus syndrome) ([facility]) 11/09 Pacemaker 12/04/2017 Essential hypertension 12/04/2017 Hyperlipidemia Supraventricular tachycardia ([facility]) Encounters Date Type Department Care Team Description 04/27/2025 11:55 AM CDT Allied Health/[facility] [address] [address] Ford Samuels MD Remote Device Check 02/12/2025 1:30 PM CDT Allied Health/Nurse Visit [facility], [address] [address] Joe Coulter MD Pacemaker Check 02/12/2025 Travel 02/10/2025 Telephone [facility], [address] [address] Jen Crockett MA Information from Last 3 Months Immunizations Immunization Administration Dates Next Due AFLURIA QUAD >36 MONTHS (MULTI-DOSE VIAL) 2018 Fluzone 6 Months+ Quad (0.5 mL Prefilled Syringe) 05/10/2020 Influenza Adult (Generic) 05/10/2020,05/15/2019, 10/25/2018 Tdap (Generic) 04/07/2018 Family History Medical History Relation Comments Coronary artery disease Neg Hx prematur e Social History Tobacco Use Types Packs/Day Years [...] file Not on file Not on file Last Filed Vital Signs Vital Sign Reading Time Taken Comments Blood Pressure 140/81 12/29/2022 3:00 PM CDT Pulse 80 12/29/2022 3:00 PM CDT Temperature - - Respiratory Rate 17 12/29/2022 3:00 PM CDT Oxygen Saturation 99% 12/29/2022 3:00 PM CDT Inhaled Oxygen Concentration - - Weight 89.7 kg (197 lb 12 oz) 12/29/2022 11:48 A M CDT Height 182.9 cm (6') 12/29/2022 11:48 AM CDT Body Mass Index 26.82 12/29/2022 11:48 AM CDT Plan of Treatment Upcoming Encounters Date Type Department Care Team (Late st Contact Info) Description 07/27/2025 11:30 AM MARKET DEVELOPMENT TRAINER Allied Health/Nurse Visit [facility] [facility] [address] [place], [place] [phone] Ford Samuels MD Three [facility]. [facility] [address] [place], [place] [id number] Health Maintenance Due Date Last Done Comments Colorectal Cancer Screening Colonoscopy (10 Years) 1956 Hepatitis C 1974 Annual Medicare Wellness Visit 2021 COVID-19 Vaccine ( season) 2024 07/01/2024, 06/05/2023, 11/29/2022, Additional history exists DTaP, Tdap and Td Vaccines (3 - Td or Tdap) 03/21/2032 03/21/2022, 04/07/2018 Pneumococcal Vaccine: 50+ Years Completed 03/21/2022, 03/10/2021 Zoster Vaccines Completed 03/21/2022, 07/0 09/2020, 08/13/2012 RSV Immunization or 60+ Years Completed 05/10/2023 Meningococcal B Vaccine Aged Out No l onger eligible based on patient's age to complete this topic Meningococcal Vaccine Aged Out No chitra leydi eligible based on patient's age to complete this topic RSV Immunizations Under 20 Months Aged Out No longer eligible based on patient's age to complete this topic Medical Devices Implanted Type Area Measurement Technician Device Identifier Shelf Expiration Date Model / Serial / Lot Atrial Lead-11/07/2001 Implanted:11/07 (Quantity not on file) Lead Implant [id number] / [id number] / Description:[employer] 4053 SWEET PICOTIP RX Rv Lead-11/07/2001 Implanted:11/07 (Quantity not on file) Lead Implant [id number] / [id number] / Description:Cardiac Pacem[employer] 4034 [place] Picotip Bs Pacemaker- Implanted:Qty: 1 on 12/29/2022 by Ford Samuels MD Pacemaker Left: Chest [employer] [id number] 11/27/2024 [id number] / [id number] / Explanted Type Area Measurement Technician Device Identifier Shelf Expiration Date Model / Serial / Lot Bs Pacemaker-2011 Implanted:03/2012 (Quantity not on file) Explanted:Qty: 1 on 12/29/2022 by Ford Samuels MD Pacemaker [employer] Description:Dual Chamber Insurance [place] [place], [place] [id number] MEDICARE [employer] Advance Directives * Full Code (Latest Code Status on File) Date Activated Date Inactivated Comments 12/29/2022 2:09 PM 12/29/2022 5:19 PM Care Teams Tie Tamper Relationship Specialty Start Date End Date Ryan Saxena MD [address] [place] [address] PCP - General INTERNAL MEDICINE 01/29/19 Joe Coulter MD [facility]. [facility] [address] [place] [address] Phyllis Drain Tile Machine Operator CARDIOVASCULAR DISEASE 09/10/17
== END 2025-04-29 15:13 | disposition left against medical advice (07) ==
PROVIDERS: Emergency Provider Nurse Practitioner Family
DX: R10.9 Unspecified abdominal pain (principal); I10 Essential (primary) hypertension; E78.00 Pure hypercholesterolemia, unspecified; K21.9 Gastro-esophageal reflux disease without esophagitis; Z95.0 Presence of cardiac pacemaker
CPT/HCPCS: 99213; G0463

== ENCOUNTER 2025-08-05 10:56 | Emergency (ER) | payer MEDICARE, OTHER, SELFPAY ==
--- NOTE | ~2025-08-05 | XR_ITS ---
EXAMINATION: XR chest 2V 08/05/2025 11:17 INDICATION: Cough. Nonsmoker. PROCEDURE: 2 view chest COMPARISON: 08/07/2022 FINDINGS: The lungs are clear. The cardiomediastinal silhouette is within normal limits. There are no pleural effusions. There is no pneumothorax suspected. Pacemaker leads are in expected position. IMPRESSION: 1: NO ACUTE CARDIOPULMONARY DISEASE. Reviewed, dictated and finalized at location [facility] [employer]
--- NOTE | 2025-08-05 10:58 | ED.URI ---
HPI - URI/Sore Throat General Chief Complaint: Upper Respiratory Infection Stated Complaint: Cough Time Seen by Provider: 08/05/25 10:57 Source: patient Mode of arrival: ambulatory Limitations: no limitations History of Present Illness HPI Narrative: Newton is a 70 year old male patient presenting to the clinic today with c/o cough x 2.5 months. He reports cough is dry and nagging. He is not bringing up any phlegm. He denies any fevers, chills, body aches. No history of asthma. He is not a current smoker. Does take blood pressure medications-atenolol and losartan with hydrochlorothiazide. Does have history of GERD as well-takes pantoprazole for this. Does feel as though he has some postnasal drip that is constant. Denies any shortness of breath or chest pain. No history of congestive heart failure, asthma, or COPD Related Data Allergies Allergy/AdvReac Type Severity Reaction Status Date / Time No Known Allergies Allergy Verified 08/05/25 11:01 Review of Systems Review of Systems: Pertinent positives per HPI. Patient denies any fever, chills, rash, headache, visual changes, dizziness, shortness of breath, chest pain, palpitations, nausea, vomiting, diarrhea, constipation, abdominal pain, or any urinary issues. [facility] Past Medical History Medical History (Updated 08/05/25 @ 11:29 by Lex Schulz APRN) Hx of gastroesophageal reflux (GERD) Hypercholesterolemia Hypertension Tachycardia-bradycardia syndrome Surgical History Surgical History History of appendectomy History of cholecystectomy History of pacemaker Family History Family History Father Family history of congestive heart failure Mother Heart disease Social History Social History Smoking status: Never smoker Second hand tobacco smoke exposure: No Alcohol intake: current Drinks per week: 6 Alcohol use details: wine Substance use: never Living arrangements: with family Occupation/Education: occupation Additional occupation/education comments: Contractor Gender identity (if verbalized by the patient): Male Comments At the time of my signature, I reviewed and agree with the nursing past medical, surgical, social, and family history. There is no relevant family history pertinent to the patient complaint. Exam Narrative: General: Well-developed, well nourished, in no apparent distress Head: Normocephalic, atraumatic Eyes: Pupils equally round and reactive to light bilaterally, EOM intact, sclera and conjunctive clear, no discharge, lids normal Ears: TMs intact and clear, ear canals clear, no drainage, grossly hearing normal. Nose: Nares patent, no discharge, no inflammation, no sinus tenderness. Mouth: Oral pharynx mild red without lesions or masses, good dentition, MMM. PND Neck: Supple, trachea midline, no enlargement of anterior or posterior cervical nodes, no thyroid masses or goiter palpable. Cardio: Regular rate and rhythm, s1 and s2 normal, no murmur appreciated. Resp: Clear to auscultation bilaterally, no rhonchi, rales, wheezing or rubs Course Course Emergency Course: Portions of this record may have been created with voice recognition software. Level of Care: Express Care Visit Vital Signs Vital signs: Vital Signs Temperature 36.3 C L 08/05/25 11:03 Pulse Rate 71 08/05/25 11:03 Respiratory Rate 18 08/05/25 11:03 Blood Pressure 116/71 08/05/25 11:03 Pulse Oximetry 99 08/05/25 11:03 Oxygen Delivery Room Air 08/05/25 11:03 Temperature 36.3 C L 08/05/25 11:03 Pulse Rate 71 08/05/25 11:03 Respiratory Rate 18 08/05/25 11:03 Blood Pressure 116/71 08/05/25 11:03 Pulse Oximetry 99 08/05/25 11:03 Oxygen Delivery Room Air 08/05/25 11:03 Vital signs reviewed MDM - URI/Sore Throat MDM Narrative Medical decision making narrative: At the time of visit patient is resting comfortably on the exam table. Patient appears to be nontoxic. C/o cough x 2.5 months. He reports cough is dry and nagging. He is not bringing up any phlegm. He denies any fevers, chills, body aches. No history of asthma. He is not a current smoker. Does take blood pressure medications-atenolol and losartan with hydrochlorothiazide. Does have history of GERD as well-takes pantoprazole for this. Has cardiac pacemaker for tachycardia-bradycardia syndrome. Does feel as though he has some postnasal drip that is constant. Denies any shortness of breath or chest pain. No history of congestive heart failure, asthma, or COPD. On exam patient has bilateral TMs intact and clear, no nasal drainage, mild anterior turbinate inflammation, oral pharynx mildly red with postnasal drip, heart rates regular rate and rhythm, lung sounds are clear. Chest x-ray was ordered. Diagnostics: Chest x-ray was performed and is negative for any acute cardiopulmonary process. Plan: I suspect patient likely has postnasal drip causing his cough. Will send in Tessalon Perles for the cough. [id number] Flonase and Zyrtec for his symptoms. Supportive measures were discussed with the patient and they voiced understanding discharge instructions and agrees to treatment plan. Return precautions reviewed Differential Diagnosis Differential diagnosis: Likely upper respiratory infection, otitis media, sinusitis, viral infection, bronchitis, influenza, pharyngitis and other (COVID) Imaging Data Radiologist's impression: ITS Impressions Chest X-Ray 08/05/25 11:21 IMPRESSION: 1: NO ACUTE CARDIOPULMONARY DISEASE. Discharge Plan Discharge Clinical Impression: PND (post-nasal drip), Acute cough Patient Disposition: Home Condition: Stable Instructions: Antibiotic Form, Acute Cough (ED), Postnasal Drip (DC) Additional Instructions: Chest x-ray is negative for any acute cardiopulmonary process. Take prescription medications only as prescribed-Tessalon Perles Increase fluids and stay well hydrated May take Tylenol or motrin as directed on bottle for pain/fever May use Flonase 1 spray in each nare daily May take OTC antihistamines such as Zyrtec or Claritin daily as directed on bottle May apply Vicks vapor rub to chest to open sinuses Sinus rinses for congestion Cepacol spray, cough drops, throat lozenges, warm tea with honey/lemon, gargle salt water to soothe throat BRAT diet for diarrhea Clear liquids x 24 hours then advance as tolerated for nausea/vomiting Go to the ED if you develop a worsening in your condition- high fever not controlled by Tylenol or Motrin, dehydration, weakness, lethargy, shortness of breath, or chest pain. Follow up with your PCP in 3-5 days if symptoms persist. Patient Language: Hebrew Prescriptions: New benzonatate 200 mg capsule 200 mg PO TID 7 Days Qty: 21 0RF No Action cholecalciferol (vitamin D3) 50 mcg (2,000 unit) capsule 50 mcg PO DAILY Qty: 90 2RF atenolol 100 mg tablet 100 mg PO DAILY Qty: 90 3RF losartan-hydrochlorothiazide 50-12.5 mg tablet 1 tablet PO DAILY Qty: 90 1RF pantoprazole 40 mg tablet,delayed release (DR/EC) 40 mg PO QAM Qty: 90 1RF atorvastatin 20 mg tablet 20 mg PO DAILY Qty: 30 0RF Follow-up/Referrals: [facility] [Primary Care Provider, Medical] Time of Disposition: 11:30 Quality NIHSS Nursing Documentation ED NIHSS nursing documentation: reviewed/agree
[2025-08-05 11:03] VITALS: BP 116/71; PULSE 71; RESP 18; TEMP 36.3; O2SAT 99
== END 2025-08-05 11:37 | disposition home or self-care (01) ==
PROVIDERS: Emergency Provider Nurse Practitioner Family
DX: R09.82 Postnasal drip (principal); R05.9 Cough, unspecified; Z79.899 Other long term (current) drug therapy; I10 Essential (primary) hypertension
CPT/HCPCS: 71046; 99213; G0463